=== PATIENT | male | born 1955 | race Caucasian/White ===

== ENCOUNTER 2020-07-11 06:04 | Outpatient (REF) | payer MEDICARE, SELFPAY ==
[2020-07-11 07:42] LABS: Alanine Aminotransferase 58 U/L (0-40); Anion Gap 13 (12-20); Aspartate Amino Transferase 32 U/L (5-37); Blood Urea Nitrogen 16 mg/dL (9-16); Calcium 8.8 mg/dL (8.4-10.2); Carbon Dioxide 23 mmol/L (22-29); Chloride 107 mmol/L (96-108); Cholesterol 168 mg/dL; Estimated Glomerular Filt Rate > 60; Glucose Fasting 87 mg/dL (60-99); HDL Cholesterol 39 mg/dL; LDL Cholesterol Calculated 90 mg/dl; Potassium 4.4 mmol/l (3.3-5.1); Sodium 139 mmol/L (135-145); Triglycerides 195 mg/dL
== END 2020-07-11 06:05 | disposition home or self-care (01) ==
LOC: HO.LAB 06:04
PROVIDERS: PCP Internal Medicine; Visit Provider Internal Medicine
DX: Z00.01 Encounter for general adult medical examination with abnormal findings (principal); I10 Essential (primary) hypertension; E78.5 Hyperlipidemia, unspecified
CPT/HCPCS: 80048; 80061; 84450; 84460

== ENCOUNTER 2021-04-07 09:01 | Outpatient (REF) | payer MEDICARE, SELFPAY ==
[2021-04-07 12:14] LABS: Alanine Aminotransferase 54 U/L (0-40); Anion Gap 13 (12-20); Aspartate Amino Transferase 33 U/L (5-37); Blood Urea Nitrogen 13 mg/dL (9-16); Calcium 8.8 mg/dL (8.4-10.2); Carbon Dioxide 21 mmol/L (22-29); Chloride 110 mmol/L (96-108); Cholesterol 143 mg/dL; Estimated Glomerular Filt Rate > 60; Glucose Fasting 94 mg/dL (60-99); HDL Cholesterol 38 mg/dL; LDL Cholesterol Calculated 85 mg/dl; Potassium 4.3 mmol/L (3.3-5.1); Sodium 140 mmol/L (135-145); Triglycerides 103 mg/dL
== END 2021-04-07 09:02 | disposition home or self-care (01) ==
LOC: HO.HMGCLDS 09:01
PROVIDERS: PCP Internal Medicine; Visit Provider Internal Medicine
DX: E78.5 Hyperlipidemia, unspecified (principal); I10 Essential (primary) hypertension; K75.81 Nonalcoholic steatohepatitis (NASH)
CPT/HCPCS: 36415; 80048; 80061; 84450; 84460

== ENCOUNTER 2021-09-14 11:24 | Outpatient (REF) | payer MEDICARE, SELFPAY ==
--- NOTE | ~2021-09-14 | XR_ITS ---
EXAMINATION: XR SHOULDER RT MIN 2V, XR SHOULDER LT MIN 2V CLINICAL INFORMATION: Reason for Exam M25.511 - Pain in right shoulder COMPARISON: Left shoulder radiographs dated 08/18/2019. Right shoulder radiographs dated 11/21/2017 TECHNIQUE: AP, Grashey, transscapular Y and axillary views of each shoulder XR/XR shoulder RT min 2V FINDINGS/IMPRESSION: Left shoulder: No acute fracture or dislocation. Interval Amador procedure with resection of the distal clavicle and acromion. Glenohumeral joint unremarkable. No suspicious osseous lesions. Soft tissues unremarkable. Right shoulder: No acute fracture or dislocation. Small marginal osteophytes present along the glenohumeral and acromioclavicular joints. No suspicious osseous lesions. Soft tissues unremarkable.
--- NOTE | ~2021-09-14 | XR_ITS ---
EXAMINATION: XR SHOULDER RT MIN 2V, XR SHOULDER LT MIN 2V CLINICAL INFORMATION: Reason for Exam M25.511 - Pain in right shoulder COMPARISON: Left shoulder radiographs dated 08/18/2019. Right shoulder radiographs dated 11/21/2017 TECHNIQUE: AP, Grashey, transscapular Y and axillary views of each shoulder XR/XR shoulder LT min 2V FINDINGS/IMPRESSION: Left shoulder: No acute fracture or dislocation. Interval Amador procedure with resection of the distal clavicle and acromion. Glenohumeral joint unremarkable. No suspicious osseous lesions. Soft tissues unremarkable. Right shoulder: No acute fracture or dislocation. Small marginal osteophytes present along the glenohumeral and acromioclavicular joints. No suspicious osseous lesions. Soft tissues unremarkable.
== END 2021-09-14 11:25 | disposition home or self-care (01) ==
LOC: HO.HMGCX 11:24
PROVIDERS: Visit Provider Internal Medicine
DX: M25.512 Pain in left shoulder (principal); M25.511 Pain in right shoulder
CPT/HCPCS: 73030

== ENCOUNTER 2021-09-19 12:46 | Outpatient (RCR) | payer MEDICARE, SELFPAY ==
--- NOTE | 2021-09-19 18:42 | MHC.PT.EP ---
[facility] [place] Office [place] Office [place] Office [address] David Ferguson [address] [phone] F: [phone] F: [phone] F: [phone] F: [phone] Physical Therapy Plan of Care Date of Evaluation: Date of Surgery: Diagnosis: B shoulder pain. 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 Pt is deemed an appropriate candidate to receive skilled PT in order to address his physical limitations to improve his functional ability. Frequency and Duration: The patient will be seen 2 x / wk x 5 wks. Short Term Goals: initiate HEP with evidence of compliance. Improve B Shoulder AROM flexion to at least 160 degrees. Yacht Rigger Goals: I with HEP. Pt will be able to place objects on high shelf with managed Sx; initial: 10/10 pain Pt will be able to dress pullovers with managed Sx; initial: 8/10 difficulty. Pt will be able to lift and carry an object of 10# with managed Sx; initial 10/10 pain. Treatment Plan: Modalities to reduce pain, spasms and effusion. Manual therapy to restore motion and function. Therapeutic exercise to improve strength and flexibility. Neuromuscular re-education for posture and balance. Therapeutic activities to return to functional activities of daily living. Electronically signed by: Dion Haddad, PT, DPT. Please sign and return to therapist. Thank you for your referral.
--- NOTE | 2022-03-27 16:05 | MHC.PT.DC ---
[facility] [place] Office [place] [facility] [place] Office [address] David Ferguson [address] [phone] F: [phone] F: [phone] F: [phone] F: [phone] Physical Therapy Discharge Report Diagnosis: B shoulder pain. Date of Surgery: Date of Evaluation: 09/19/21 Date of Discharge: 03/27/22 Treatments to Date: 1 Cancellations to Date: No Shows to Date: Discharge Status: Patient Elected to Stop Visit Non-compliance Discharge Summary: Pt did not f/u with PT after her initial evaluation. Electronically signed by: Dion Haddad PT. Please sign and return to therapist. Thank you for your referral.
== END 2022-03-27 16:04 | disposition home or self-care (01) ==
LOC: HO.PTCHIC 12:46
PROVIDERS: PCP Internal Medicine; Visit Provider Internal Medicine
DX: M25.511 Pain in right shoulder (principal); M25.512 Pain in left shoulder
CPT/HCPCS: 97110; 97161

== ENCOUNTER 2022-05-17 12:08 | Outpatient (REF) | payer MEDICARE, SELFPAY ==
--- NOTE | ~2022-05-17 | XR_ITS ---
EXAMINATION: XR FOOT, RIGHT CLINICAL INFORMATION: Pain COMPARISON: None TECHNIQUE: AP, lateral, and oblique views of the right foot. FINDINGS: There is no evidence of acute fracture or dislocation of the right foot. Right foot joint spaces are maintained. No radiopaque foreign body. Plantar calcaneal spur is present. XR/XR foot RT min 3V IMPRESSION: Plantar calcaneal spur.
== END 2022-05-17 12:09 | disposition home or self-care (01) ==
LOC: HO.HMGCX 12:08
PROVIDERS: PCP Internal Medicine; Visit Provider Internal Medicine
DX: M79.671 Pain in right foot (principal)
CPT/HCPCS: 73630

== ENCOUNTER 2022-05-25 06:32 | Outpatient (REF) | payer MEDICARE, SELFPAY ==
[2022-05-25 11:52] LABS: Alanine Aminotransferase 52 U/L (0-40); Anion Gap 14 (12-20); Aspartate Amino Transferase 31 U/L (5-37); Blood Urea Nitrogen 13 mg/dL (9-16); Calcium 9.1 mg/dL (8.4-10.2); Carbon Dioxide 23 mmol/L (22-29); Chloride 108 mmol/L (96-108); Cholesterol 158 mg/dL; Estimated Glomerular Filt Rate > 60; Glucose Fasting 91 mg/dL (60-99); HDL Cholesterol 38 mg/dL; LDL Cholesterol Calculated 89 mg/dl; Potassium 4.3 mmol/L (3.3-5.1); Sodium 141 mmol/L (135-145); Triglycerides 156 mg/dL
[2022-05-25 12:14] LABS: PSA,Total (Free>4and<10) 3.77 ng/mL (0.00-4.00)
== END 2022-05-25 06:33 | disposition home or self-care (01) ==
LOC: HO.HMGCLDS 06:32
PROVIDERS: PCP Internal Medicine; Visit Provider Internal Medicine
DX: Z12.5 Encounter for screening for malignant neoplasm of prostate (principal); E66.9 Obesity, unspecified; E78.5 Hyperlipidemia, unspecified; Z85.46 Personal history of malignant neoplasm of prostate
CPT/HCPCS: 36415; 80048; 80061; 84153; 84450; 84460

== ENCOUNTER 2023-02-01 06:33 | Outpatient (REF) | payer MEDICARE, SELFPAY | END 2023-02-01 06:34 | disposition home or self-care (01) | LOC: HO.HMGCLDS 06:33 | PROVIDERS: PCP Internal Medicine; Visit Provider Internal Medicine | DX: I10 Essential (primary) hypertension (principal); E78.5 Hyperlipidemia, unspecified; K75.81 Nonalcoholic steatohepatitis (NASH) | CPT/HCPCS: 36415; 80048; 80061; 84450; 84460 ==

== ENCOUNTER 2023-04-03 09:18 | Outpatient (AMB) | payer MEDICARE, SELFPAY ==
--- NOTE | 2023-04-03 09:31 | MHC.OFFWIV ---
Intake Vital Signs 04/03/23 09:32 Weight 203 lb BP 106/60 Blood Pressure Location Lt brachial Position Sitting Pulse 86 Pulse Source Pulse Oximeter Temp 98.8 F Temp Source Oral Pulse Oximetry (%) 93 Oxygen Delivery Method Room Air Intake Visit Reasons: EST/ sore throat from surgery/infection? Intake Note: Patient here for sore throat. he was had a shoulder replacement on the and has had a sore throat since then. He mentioned that he is now coughing and feels like he has a fever but is unsure if he actually has one. Patient Tobacco Use Status: Never used Tobacco Allergies No Known Allergies Allergy (Verified 01/27/23 12:01) Do you need a note to return to daycare/school/sports/work: No HPI HPI Comments History of Present Illness Details 68-year-old male that presents for sore throat. Patient states that he had total shoulder replacement surgery approximately 2 weeks ago during the surgery he was intubated. Last week he had a sore throat for most of the week. This week his sore throat change knee developed a cough some difficulty swallowing. He also endorses some hotness but has not taken his temperature at home. [facility] Medical History Degenerative disc disease, cervical Dyslipidemia Essential hypertension History of prostate cancer Intolerance to BiPAP/CPAP Left rotator cuff tear BROOKE (nonalcoholic steatohepatitis) Nodular prostate without lower urinary tract symptoms BLAIR (obstructive sleep apnea) Right foot pain Shoulder pain, bilateral Surgical History History of spinal surgery Family History Father Medical history non-contributory Mother Medical history non-contributory Social History Housing: Apartment Alcohol intake: never Patient Tobacco Use Status: Never used Tobacco e-Cigarette/Vaping Use: Never Used Second Hand Smoke Exposure: No service: No Current occupational status: employed Cognitive needs: No Hearing needs: No Vision needs: Yes Review of Systems Const All systems reviewed & are unremarkable except as noted in HPI and below ENT Details: Sore throat Physical Exam Vital Signs: Last Vital Signs Temp 98.8 F 04/03/23 09:32 Pulse 86 04/03/23 09:32 BP 106/60 04/03/23 09:32 Pulse Ox 93 04/03/23 09:32 Oxygen Delivery Method Room Air 04/03/23 09:32 Const General: healthy appearing, comfortable, no acute distress, well developed and alert HEENT Other: posterior pharynx with mild erythema no tonsillar swelling tonsils 1+ bilaterally uvula midline no trismus Assessment & Plan Assessment & Plan (1) Pharyngitis: Code(s): J02.9 - Acute pharyngitis, unspecified Plan VSS. Exam notable for erythema in the posterior pharynx no trismus muffled voice uvula deviation tonsils 1+. Patient likely suffering from viral pharyngitis based on Centor criteria no need for strep swab. Will recommend symptomatic treatment prescribed medication for cough Discharge instructions, follow up and treatment are discussed with patient in my usual fashion. Alternatives in treatment are also discussed. The patient will return for worsening symptoms or as needed. Advised that any labs/imaging ordered will be followed up on and contact made if further treatment needed. Counseled that patient's condition may require further evaluation and/or treatment. Symptoms of concern for worsening disorder discussed in detail in my customary manner. Patient does verbalize understanding of the plan, there are no apparent barriers to communication. The patient is given the opportunity to ask questions and have them answered to his/her satisfaction Medications: New dextromethorphan HBr 15 mg PO Q8H PRN 10 caps 0RF cough Patient Instructions: Your rapid strep test is negative, In the meantime soothing relief is often obtained from the following: a cup of tea with honey a cup of tea with lemon hot chocolate Chicken bullion or soup warm salt water gargles or baking soda. Mix 1 teaspoon of salt with 1 cup of water gargle for 5 to 10 seconds and then spit and repeat as needed. You can also do this with 1 teaspoon of baking soda. There are many [id number] medications to help soothe a sore throat I would suggest: CEPACOL LOZENGES CHLORASEPTIC THROAT SPRAY. There are many others.. Coding Level of Care Code Est Pt Level 2 (98965) Diagnoses Pharyngitis J02.9
[2023-04-03 09:32] VITALS: BP 106/60; PULSE 86; TEMP 37.1; O2SAT 93
== END 2023-04-03 10:03 | disposition home or self-care (01) ==
PROVIDERS: PCP Internal Medicine; Visit Provider Physician Assistant
DX: J02.9 Acute pharyngitis, unspecified (principal)
CPT/HCPCS: 87880; 99212

== ENCOUNTER 2023-04-06 16:08 | Emergency (ER) | payer MEDICARE, SELFPAY ==
--- NOTE | ~2023-04-06 | XR_ITS ---
EXAMINATION: XR CHEST CLINICAL INFORMATION: Shortness of breath COMPARISON: None available. TECHNIQUE: 2 views of the chest were obtained. FINDINGS: Subtle radiopacity in the left lung base may reflect atelectasis versus evolving infectious/inflammatory etiology. Slight right basilar atelectasis. No pneumothorax. Trachea is midline. Cardiomediastinal silhouette is not enlarged. Lower cervical spinal hardware. Right shoulder arthroplasty. Faint radiopaque surgical material overlying the gastroesophageal junction. Soft tissues are unremarkable. XR/XR chest 2V IMPRESSION: 1. Subtle radiopacity in the left lung base may reflect atelectasis versus evolving infectious/inflammatory etiology. 2. Slight right basilar atelectasis.
[2023-04-06 16:12] VITALS: BP 126/60; PULSE 80; RESP 18; TEMP 36.6; O2SAT 98; BMI 35.5
--- NOTE | 2023-04-06 16:12 | ECG_ITS ---
Test Reason : SOB Blood Pressure : / mmHG Vent. Rate : 069 BPM Atrial Rate : 069 BPM P-R Int : 126 ms QRS Dur : 096 ms QT Int : 396 ms P-R-T Axes : 015 -12 018 degrees QTc Int : 424 ms Sinus rhythm with Premature atrial complexes Moderate voltage criteria for LVH, may be normal variant ( R in aVL , Cezar product ) Borderline ECG When compared with ECG of 02-MAY-2010 09:58, Premature atrial complexes are now Present Referred By: Janelle Link Electronically Signed By:STEVE DICK
--- NOTE | 2023-04-06 16:12 | ED.SOB ---
HPI - SOB/Dyspnea General Chief Complaint: General Medical Stated Complaint: Coughing/ Weakness Time Seen by Provider: 04/06/23 17:04 Source: patient Limitations: no limitations History of Present Illness HPI Narrative: Patient is a 68 year old male who presents to the ED for a sore throat and cough. He reports that he had surgery on his right shoulder about 3 weeks ago, and started 2 weeks ago his symptoms started. He reports that the cough is associated with mild phlegm production and has worsened over time. He notes associated fever and chills but denies taking his temperature at home. He explains that he only feels short of breath when he experiences a coughing fit. He has taken OTC Robitussin, which has not alleviated his symptoms. He denies taking an at-home COVID test. Related Data Home Medications Medication Instructions Recorded Confirmed morphine 30 mg immediate release 30 mg PO Q8-12H PRN 04/03/23 tablet naproxen 500 mg tablet 500 mg PO BID 04/03/23 oxycodone 5 mg tablet mg PO 04/03/23 Previous Rx's Medication Instructions Recorded lisinopril 20 1 tab PO DAILY #90 tabs 03/11/23 mg-hydrochlorothiazide 12.5 mg tablet dextromethorphan HBr 15 mg capsule 15 mg PO Q8H PRN cough #10 caps 04/03/23 amoxicillin 875 mg-potassium 1 tab PO BID #14 tabs 04/06/23 clavulanate 125 mg tablet azithromycin 250 mg tablet 250 mg PO DAILY 4 days #4 tabs 04/06/23 Allergies Allergy/AdvReac Type Severity Reaction Status Date / Time No Known Allergies Allergy Verified 04/06/23 16:12 Review of Systems Constitutional: Constitutional: Reports chills, Reports fever(s) and Reports weakness ENT: Reports nasal congestion and Reports sore throat Cardiovascular: Cardiovascular: Denies chest pain Respiratory: Respiratory: Reports cough Gastrointestinal: Gastrointestinal: Denies abdominal pain Musculoskeletal: Musculoskeletal: Denies back pain Neurologic: Reports weakness PMFSH Past Medical History Medical History Degenerative disc disease, cervical Dyslipidemia Essential hypertension History of prostate cancer Intolerance to BiPAP/CPAP Left rotator cuff tear BROOKE (nonalcoholic steatohepatitis) Nodular prostate without lower urinary tract symptoms BLAIR (obstructive sleep apnea) Right foot pain Shoulder pain, bilateral Surgical History History of spinal surgery Family History Family History Father Medical history non-contributory Mother Medical history non-contributory Social History Social History Housing: Apartment Alcohol intake: never Patient Tobacco Use Status: Never used Tobacco Smoked in Last 30 Days: No e-Cigarette/Vaping Use: Never Used Second Hand Smoke Exposure: No Use of substances other than those prescribed or required for medical reasons: No Advance Directives: Yes Advance Directives on File: Yes Advance Directives Date on File: 11/05/21 service: No Current occupational status: employed Cognitive needs: No Hearing needs: No Vision needs: Yes Physical Exam Vital Signs: Vital Signs: Last Vital Signs Temp 98.6 F 04/06/23 16:38 Pulse 65 04/06/23 16:38 Resp 16 04/06/23 16:38 BP 132/65 04/06/23 16:38 Pulse Ox 94 04/06/23 16:38 O2 Del Method Room Air 04/06/23 16:38 BMI result Body Mass Index 35.5 Const: General: healthy appearing, comfortable, no acute distress, alert and awake Nutritional Appearance: well nourished Orientation/consciousness: patient oriented x3 HEENT: Head: Yes normocephalic and Yes atraumatic Eyes: Eyelids: Yes eyelids normal Conjunctivae: conjunctivae normal Sclerae: sclerae normal Corneas: corneas normal Pupils: Equal, round and reactive pupils present EOM: EOMs intact bilaterally Neck: Neck: Yes full ROM Resp: Effort & Inspection: normal respiratory effort, able to speak in complete sentences, no audible wheezes and not labored Auscultation: not clear to auscultation bilaterally and rhonchi left lower Cardio: Rate: regular rate Rhythm: regular rhythm GI: Inspection: No distended Palpation (GI): Soft to palpation, not firm, nontender, no guarding and not rigid Skin: General skin exam: no rashes or lesions noted and elasticity normal Neuro: General: patient oriented x3 Cranial nerves: Yes Equal, round and reactive pupils present and Yes Bilaterally intact EOM present Cognition (Neuro): normal cognition Course Course Course Narrative: This is a rapid medical exam. Deferred additional HPI, ROS, PE to primary provider. 68 yo male who had a shoulder replacement to right side 3 weeks ago here with complaints of 1 week of cough/shortness of breath/ chest pain with coughing. Will obtain labs, CXR, EKG, covid/flu/rsv VSS Medical Decision Making Medical Decision Making MDM Narrative: 68-year-old male presents for evaluation of cough and subjective fevers and chills. He has a leukocytosis of 17.5, mild rhonchi left lower lung field. Chest x-ray shows infectious process in the left lung base. Will treat the patient clinically for community-acquired pneumonia. I did discuss the possibility with him if he has worsening symptoms, or severe chest pain/shortness of breath he should return for further workup including is likely CTA of the chest to rule out PE given his recent orthopedic surgery. Her given clinically the picture is much more likely to be pneumonia we will treat that 1st. His vital signs are stable, he is not tachypneic, tachycardic or hypoxic Differential Diagnosis Differential Diagnoses: The differential diagnosis associated with the presentation includes Community-acquired pneumonia Viral syndrome Influenza COVID-19 PE less likely Admission/Observation Consideration of admission/observation: Escalation of care including admission/observation considered Patient has pneumonia clinically and on x-ray. However he is not septic and his vital signs are stable Lab Data [facility] Lab Attestation statement: I reviewed the patient's lab results. Leukocytosis to 17.5 K with a left shift. Mild anemia. No electrolyte abnormalities, normal renal function. 04/06/23 16:35 04/06/23 16:35 Labs: Lab Results 04/06/23 04/06/23 04/06/23 Range/Units 16:35 16:35 16:35 WBC 17.5 H (4.8-10.8) X10*3/uL RBC 4.36 L (4.60-5.80) X10*6/uL Hgb 12.3 L (14.0-18.0) g/dl Hct 36.1 L (42.0-52.0) % MCV 82.8 (80.0-98.0) fL MCH 28.2 (27.0-33.0) pg MCHC 34.1 (31.0-36.0) g/dl RDW 12.2 (11.0-16.0) % Plt Count 417 H (160-400) X10*3/uL MPV 10.4 (9.4-12.4) fL Immature Gran % (Auto) 0.5 H (0.0-0.4) % Neut % (Auto) 73.8 H (45-73) % Lymph % (Auto) 12.8 L (20-40) % Hubbard % (Auto) 9.9 (2-11) % Eos % (Auto) 2.5 (0-4) % Baso % (Auto) 0.5 (0-2) % Lymph # (Auto) 2.2 (1.2-4.9) X10*3/uL Hubbard # (Auto) 1.7 H (0.1-1.2) X10*3/uL Eos # (Auto) 0.4 (0.0-0.4) X10*3/uL Baso # (Auto) 0.1 (0.0-0.2) X10*3/uL Abs Immat Gran (auto) 0.08 H (0.00-0.03) X10*3/uL Absolute Neuts (auto) 13.0 H (2.0-8.3) x10*3/uL Absolute Nucleated RBC 0.000 (0.0-0.012) X10*3/uL Nucleated RBC % (auto) 0.0 (0.0-0.2) /100WBC PT 14.5 H (11.1-13.3) SEC INR 1.2 H (0.9-1.1) Sodium 136 (135-145) mmol/L Potassium 3.7 (3.3-5.1) mmol/L Chloride 102 (96-108) mmol/L Carbon Dioxide 25 (22-29) mmol/L Anion Gap 13 (12-20) BUN 16 (9-16) mg/dL Creatinine 1.08 (0.5-1.4) mg/dL Estim Creat Clear Calc 64.4 Estimated GFR > 60 Random Glucose 125 H (60-115) mg/dL Calcium 9.1 (8.4-10.2) mg/dL Total Bilirubin 0.7 (0.0-1.0) mg/dL Direct Bilirubin 0.4 (0.0-0.5) mg/dL AST 21 (5-37) U/L ALT 22 (0-40) U/L Alkaline Phosphatase 114 (39-117) U/L Troponin I High Sens (<3.5-35.0) ng/L Total Protein 7.2 (6.5-8.0) g/dL Albumin 3.4 L (3.5-5.0) g/dL Influenza Type A (PCR) (Negative) Influenza Type B (PCR) (Negative) RSV RNA Qual (PCR) (Negative) SARS-CoV-2 RNA (RT-PCR) (Negative) 04/06/23 04/06/23 Range/Units 16:35 16:35 WBC (4.8-10.8) X10*3/uL RBC (4.60-5.80) X10*6/uL Hgb (14.0-18.0) g/dl Hct (42.0-52.0) % MCV (80.0-98.0) fL MCH (27.0-33.0) pg MCHC (31.0-36.0) g/dl RDW (11.0-16.0) % Plt Count (160-400) X10*3/uL MPV (9.4-12.4) fL Immature Gran % (Auto) (0.0-0.4) % Neut % (Auto) (45-73) % Lymph % (Auto) (20-40) % Hubbard % (Auto) (2-11) % Eos % (Auto) (0-4) % Baso % (Auto) (0-2) % Lymph # (Auto) (1.2-4.9) X10*3/uL Hubbard # (Auto) (0.1-1.2) X10*3/uL Eos # (Auto) (0.0-0.4) X10*3/uL Baso # (Auto) (0.0-0.2) X10*3/uL Abs Immat Gran (auto) (0.00-0.03) X10*3/uL Absolute Neuts (auto) (2.0-8.3) x10*3/uL Absolute Nucleated RBC (0.0-0.012) X10*3/uL Nucleated RBC % (auto) (0.0-0.2) /100WBC PT (11.1-13.3) SEC INR (0.9-1.1) Sodium (135-145) mmol/L Potassium (3.3-5.1) mmol/L Chloride (96-108) mmol/L Carbon Dioxide (22-29) mmol/L Anion Gap (12-20) BUN (9-16) mg/dL Creatinine (0.5-1.4) mg/dL Estim Creat Clear Calc Estimated GFR Random Glucose (60-115) mg/dL Calcium (8.4-10.2) mg/dL Total Bilirubin (0.0-1.0) mg/dL Direct Bilirubin (0.0-0.5) mg/dL AST (5-37) U/L ALT (0-40) U/L Alkaline Phosphatase (39-117) U/L Troponin I High Sens 2.9 (<3.5-35.0) ng/L Total Protein (6.5-8.0) g/dL Albumin (3.5-5.0) g/dL Influenza Type A (PCR) NEGATIVE (Negative) Influenza Type B (PCR) NEGATIVE (Negative) RSV RNA Qual (PCR) NEGATIVE (Negative) SARS-CoV-2 RNA (RT-PCR) NEGATIVE (Negative) Independent Interpretation I performed an independent interpretation of an: Plain X-Ray (Left lower lobe infiltrate) Radiology Impression Discussion of test interpretation with radiology: I have reviewed the radiologist's reading. Radiologist Impression: Left lower lobe atelectasis versus developing infectious process Tests considered The following testing was considered but not selected: Considered CTA of the chest to rule out PE, however clinically the patient is much more likely to have pneumonia Prescription Management I considered prescription management with: Antibiotic Chronic Conditions Patient?s care impacted by: Hypertension Discharge Plan Discharge Clinical Impression: Community acquired pneumonia Patient Disposition: Home, Self-Care Instructions: Community Acquired Pneumonia (ED) Additional Instructions: Your workup in the emergency department today shows that you have pneumonia in the left lower lung field. Take both antibiotics as prescribed You may also use [id number] cough medicine as needed for coughing Return to the ER if he develops severe pain or shortness of breath. You should also return to the ER if you finish the antibiotics and her symptoms do not improve Prescriptions: New amoxicillin-pot clavulanate 875-125 mg tablet 1 tab PO BID Qty: 14 0RF azithromycin 250 mg tablet 250 mg PO DAILY 4 Days Qty: 4 0RF No Action lisinopril-hydrochlorothiazide 20-12.5 mg tablet 1 tab PO DAILY Qty: 90 1RF morphine 30 mg tablet 30 mg PO Q8-12H PRN oxycodone 5 mg tablet PO naproxen 500 mg tablet 500 mg PO BID dextromethorphan HBr 15 mg capsule 15 mg PO Q8H PRN (Reason: cough) Qty: 10 0RF
[2023-04-06 16:38] VITALS: BP 132/65; PULSE 65; RESP 16; TEMP 37; O2SAT 94
[2023-04-06 16:42] LABS: Basophils Absolute Auto 0.1 X10*3/uL (0.0-0.2); Basophils Percent Auto 0.5 % (0-2); Eosinophils Absolute Auto 0.4 X10*3/uL (0.0-0.4); Eosinophils Percent Auto 2.5 % (0-4); Hematocrit 36.1 % (42.0-52.0); Hemoglobin 12.3 g/dl (14.0-18.0); Imm Gran Abs Auto 0.08 X10*3/uL (0.00-0.03); Imm Gran Pct Auto 0.5 % (0.0-0.4); Lymphocytes Absolute Auto 2.2 X10*3/uL (1.2-4.9); Lymphocytes Percent Auto 12.8 % (20-40); MANUAL DIFF FLAG SCAN; Mean Corpuscular HGB Conc 34.1 g/dl (31.0-36.0); Mean Corpuscular Hemoglobin 28.2 pg (27.0-33.0); Mean Corpuscular Volume 82.8 fL (80.0-98.0); Mean Platelet Volume 10.4 fL (9.4-12.4); Monocytes Absolute Auto 1.7 X10*3/uL (0.1-1.2); Monocytes Percent Auto 9.9 % (2-11); Neutrophils Percent Auto 73.8 % (45-73); Platelet Count 417 X10*3/uL (160-400); Red Blood Count 4.36 X10*6/uL (4.60-5.80); Red Cell Distribution Width 12.2 % (11.0-16.0); SCAN SMEAR FLAG 1; White Blood Count 17.5 X10*3/uL (4.8-10.8)
--- NOTE | 2023-04-06 16:42 | PC.NURSE ---
alert and oriented, respirations even and unlabored. denies any pain at this time, states his chest only hurts with his cough. cough has been persistent since intubation with shoulder surgery. denies any sick contacts or fevers at home. call saenz within reach, resting comfortably in room
[2023-04-06 16:47] LABS: INTERNATIONAL NORM RATIO 1.2 (0.9-1.1); Prothrombin Time 14.5 SEC (11.1-13.3)
[2023-04-06 16:55] LABS: Alanine Aminotransferase 22 U/L (0-40); Albumin Level 3.4 g/dL (3.5-5.0); Alkaline Phosphatase 114 U/L (39-117); Anion Gap 13 (12-20); Aspartate Amino Transferase 21 U/L (5-37); Bilirubin Direct 0.4 mg/dL (0.0-0.5); Bilirubin Total 0.7 mg/dL (0.0-1.0); Blood Urea Nitrogen 16 mg/dL (9-16); Calcium 9.1 mg/dL (8.4-10.2); Carbon Dioxide 25 mmol/L (22-29); Chloride 102 mmol/L (96-108); Creatinine Clr Calc Pharmacy 64.4; Estimated Glomerular Filt Rate > 60; Glucose Random 125 mg/dL (60-115); Potassium 3.7 mmol/L (3.3-5.1); Sodium 136 mmol/L (135-145); Total Protein 7.2 g/dL (6.5-8.0)
[2023-04-06 17:02] LABS: Troponin-I High Sensitivity 2.9 ng/L (<3.5-35.0)
[2023-04-06 17:20] LABS: Influenza A PCR NEGATIVE (Negative); Influenza B PCR NEGATIVE (Negative); Resp Syncy Virus RNA Qual PCR NEGATIVE (Negative); SARS COV2 PCR INHOUSE NEGATIVE (Negative)
[2023-04-06 17:47] LABS: SLIDE REVIEW VERIFIED
[2023-04-06] MEDS: Amoxicillin/Potassium Clav 875 MG TABLET PO (17:47)
[2023-04-06] MEDS: Azithromycin 500 MG TABLET PO (17:47)
== END 2023-04-06 17:51 | disposition home or self-care (01) ==
PROVIDERS: Nurse Practitioner Family; Emergency Provider Internal Medicine; PCP Internal Medicine
DX: J18.9 Pneumonia, unspecified organism (principal); R05.9 Cough, unspecified; R06.02 Shortness of breath; R94.31 Abnormal electrocardiogram [ECG] [EKG]; R53.1 Weakness; Z20.822 Contact with and (suspected) exposure to COVID-19; Z20.828 Contact with and (suspected) exposure to other viral communicable diseases; Z79.899 Other long term (current) drug therapy
CPT/HCPCS: 0241U; 71046; 80048; 80076; 84484; 85025; 85610; 93005; 99284

== ENCOUNTER 2023-04-15 13:16 | Outpatient (AMB) | payer MEDICARE, SELFPAY ==
--- NOTE | 2023-04-15 13:44 | MHC.PC.OV ---
Vital Signs 04/15/23 14:05 Height 5 ft 3 in Weight 199 lb BMI 35.2 BP 138/70 Blood Pressure Location Lt brachial Position Sitting Pulse 57 Pulse Source Pulse Oximeter Pulse Oximetry (%) 97 Oxygen Delivery Method Room Air Intake Visit Reasons: Follow-up pneumonia Intake Note: Pt is here today for a ER [facility] f/u pneumonia still has cough Allergies No Known Allergies Allergy (Verified 04/15/23 14:14) Medication List - Last Reconciled 04/15/23 by Kinga Mukherjee MD lisinopril-hydrochlorothiazide 20-12.5 mg 1 tab PO DAILY naproxen 500 mg PO BID Tobacco use date assessed: 04/15/23 Fall risk assessment: No Falls in past year Last assessed Fall Risk: 04/15/23 Dental Screening Dental Screen Date: 04/15/23 Did you have a dental visit in the last 12 months?: No Was dental information given to patient?: Patient has dentist HPI HPI Comments History of Present Illness Details 68-year-old male recently seen at the walk-in clinic and treated for left lower lobe pneumonia with Augmentin for 7 days and Z-Oswald,, here today for follow-up. Still complaining of persistent cough, but no shortness of breath, no chest pain or fever reported. He is a nonsmoker. [facility] Medical History Right foot pain History of prostate cancer Shoulder pain, bilateral Nodular prostate without lower urinary tract symptoms Intolerance to BiPAP/CPAP BLAIR (obstructive sleep apnea) Left rotator cuff tear Degenerative disc disease, cervical BROOKE (nonalcoholic steatohepatitis) Dyslipidemia Essential hypertension Surgical History History of spinal surgery Family History Father Medical history non-contributory Mother Medical history non-contributory Social History Housing: Apartment Alcohol intake: never Patient Tobacco Use Status: Never used Tobacco e-Cigarette/Vaping Use: Never Used Second Hand Smoke Exposure: No Advance Directives Date on File: 11/05/21 service: No Current occupational status: employed Cognitive needs: No Hearing needs: No Vision needs: Yes Questionnaire Thrive Questionnaire Date Thrive assessed: 01/27/23 QUINTEN-7 AMB Questionnaire QUINTEN-7 Date QUINTEN - 7 assessed: 01/27/23 Source: Developed by Drs. Josh Westfall, Adry Almonte, Koby Jones and colleagues, with an educational frederick from [employer]. Review of Systems Const Denies fatigue, Denies fever(s), Denies headache(s) and Denies weakness ENT Denies dizziness, Denies headache(s), Denies nasal congestion, Denies nasal discharge and Denies sore throat Card Denies chest pain, Denies lightheadedness, Denies palpitations and Denies dyspnea Resp Reports as per HPI and Denies dyspnea GI Denies abdominal pain, Denies change in bowel habits and Denies heartburn Denies hematuria, Denies difficulty urinating, Denies dysuria, Denies urinary frequency and Denies urinary urgency Musc Reports as per HPI Skin/Breast Denies lesions and Denies rash Neuro Denies dizziness, Denies headache(s) and Denies weakness Endo Denies fatigue, Denies polydipsia, Denies polyuria and Denies palpitations Physical exam (Primary Care) Vital Signs: Last Vital Signs Pulse 57 04/15/23 14:05 BP 138/70 04/15/23 14:05 Pulse Ox 97 04/15/23 14:05 Oxygen Delivery Method Room Air 04/15/23 14:05 BMI result Body Mass Index 35.2 Tobacco/Smoking Status: Tobacco use Status Tobacco use date assessed 04/15/23 04/15/23 13:48 Patient Tobacco Use Status Never used Tobacco 04/15/23 13:46 e-Cigarette/Vaping Use Never Used 04/15/23 13:46 Thrive Assessment: Date of Thrive Assessment Date Thrive assessed 01/27/23 04/15/23 13:46 Const Other: Alert oriented x3, no acute distress noted Orientation/consciousness: patient oriented x3 HENMT Ears: external ears normal, TM's normal bilaterally and EAC's normal General nose exam: Normal external nose present Face and sinus: Yes sinuses nontender and Yes face symmetric Mouth: Normal oral and palatal mucosa present, oropharynx normal and moist mucous membranes Neck Neck: Yes full ROM, Yes no lymphadenopathy and Yes supple Resp Auscultation: wheezes left lower Cardio Other: S1-S2 present regular rate and rhythm GI Palpation (GI): Soft to palpation, nontender and no guarding Auscultation: normal bowel sounds Neuro General: patient oriented x3, moves all extremities, no focal motor deficits and CN's II-XI intact bilaterally Assessment and Plan Assessment & Plan (1) Persistent cough: Code(s): R05.3 - Chronic cough Plan: Ordered a repeat CBC with differential, and repeat chest x-ray, placed on 3 more days of Augmentin and prescription sent for albuterol inhaler, 2 inhalations every 6 hours as needed for episodes of shortness of breath or wheezing. Return to the clinic if after 3 days no improvement of symptoms Orders: Orders Complete Blood Count Auto Diff 04/16/23 R05.3 - Chronic cough XR chest 2V 04/15/23 R05.3 - Chronic cough Medications: New amoxicillin-pot clavulanate 875-125 mg 1 tab PO Q12H 6 tabs 0RF 3 days albuterol sulfate 90 mcg/actuation 2 puffs inhalation Q6H PRN 8.5 grams 0RF shortness of breath or wheezing Coding Level of Care Code Est Pt Level 4 (69544) Diagnoses Persistent cough R05.3
[2023-04-15 14:05] VITALS: BP 138/70; PULSE 57; O2SAT 97; BMI 35.2
== END 2023-04-15 14:42 | disposition home or self-care (01) ==
PROVIDERS: PCP Internal Medicine; Visit Provider Internal Medicine
DX: R05.3 Chronic cough (principal)
CPT/HCPCS: 99214

== ENCOUNTER 2023-04-15 15:54 | Outpatient (REF) | payer MEDICARE, SELFPAY ==
--- NOTE | ~2023-04-15 | XR_ITS ---
EXAMINATION: XR CHEST CLINICAL INFORMATION: Pneumonia follow-up COMPARISON: 04/06/2023 TECHNIQUE: 2 views of the chest were obtained. FINDINGS: Persistent patchy density left base. Improved aeration at the left base since the prior study. Continued follow-up advised. Right lung clear. Heart and pulmonary vessels are normal. Postsurgical changes in the C-spine and right shoulder are again observed. XR/XR chest 2V IMPRESSION: Improving aeration left base. Continued follow-up is advised.
== END 2023-04-15 15:55 | disposition home or self-care (01) ==
LOC: HO.HMGCX 15:54
PROVIDERS: PCP Internal Medicine; Visit Provider Internal Medicine
DX: R05.3 Chronic cough (principal)
CPT/HCPCS: 71046

== ENCOUNTER 2023-04-16 06:34 | Outpatient (REF) | payer MEDICARE, SELFPAY ==
[2023-04-16 11:55] LABS: MANUAL DIFF FLAG NO
[2023-04-16 12:08] LABS: Basophils Absolute Auto 0.1 X10*3/uL (0.0-0.2); Basophils Percent Auto 0.6 % (0-2); Eosinophils Absolute Auto 0.4 X10*3/uL (0.0-0.4); Eosinophils Percent Auto 3.2 % (0-4); Hematocrit 39.1 % (42.0-52.0); Hemoglobin 12.7 g/dl (14.0-18.0); Imm Gran Abs Auto 0.13 X10*3/uL (0.00-0.03); Imm Gran Pct Auto 1.2 % (0.0-0.4); Lymphocytes Absolute Auto 2.9 X10*3/uL (1.2-4.9); Lymphocytes Percent Auto 25.9 % (20-40); Mean Corpuscular HGB Conc 32.5 g/dl (31.0-36.0); Mean Corpuscular Hemoglobin 28.3 pg (27.0-33.0); Mean Corpuscular Volume 87.1 fL (80.0-98.0); Mean Platelet Volume 11.4 fL (9.4-12.4); Monocytes Percent Auto 8.8 % (2-11); Neutrophils Absolute Auto 6.7 x10*3/uL (2.0-8.3); Neutrophils Percent Auto 60.3 % (45-73); Platelet Count 374 X10*3/uL (160-400); Red Blood Count 4.49 X10*6/uL (4.60-5.80); Red Cell Distribution Width 12.8 % (11.0-16.0); White Blood Count 11.2 X10*3/uL (4.8-10.8)
== END 2023-04-16 06:35 | disposition home or self-care (01) ==
LOC: HO.HMGCLDS 06:34
PROVIDERS: PCP Internal Medicine; Visit Provider Internal Medicine
DX: R05.3 Chronic cough (principal)
CPT/HCPCS: 36415; 85025

== ENCOUNTER 2024-02-12 12:48 | Outpatient (AMB) | payer MEDICARE, SELFPAY ==
--- NOTE | 2024-02-12 13:00 | A.OFFVIS_ITS ---
Intake Vital Signs 02/12/24 13:02 Height 5 ft 3 in Weight 215 lb BMI 38.1 BP 130/70 Blood Pressure Location Rt brachial Position Sitting Pulse 79 Pulse Source Pulse Oximeter Pulse Oximetry (%) 96 Oxygen Delivery Method Room Air Intake Visit Reasons: G0439 AWV Intake Note: Pt is here today for her AWV Allergies No Known Allergies Allergy (Verified 02/12/24 13:10) Medication List - Last Reconciled 02/12/24 by Kinga Mukherjee MD lisinopril-hydrochlorothiazide 20-12.5 mg 1 tab PO DAILY HPI G0439 AWV HPI Details SWV ? 69 year old male presents for his subsequent annual wellness visit. He has hypertension currently stable and controlled on lisinopril-HCTZ has been compliant with his medications and diet, stays active at work. He is currently being followed [facility], diagnosed with adenocarcinoma of the prostate status post robotic assisted prostatectomy 024 with bilateral PLND, doing well post surgery except for difficulty holding urine. He has a follow-up appointment scheduled with them later this month. He had normal fasting lipid and screening for diabetes mellitus done 02/01/2023. Last colonoscopy was done in 2006, does not want to do further testing at present time. He is up-to-date with his COVID vaccination, up-to-date with his pneumococcal vaccination and Tdap, reminded to get his shingles vaccine and yearly flu shot. ? Medical / Social History Reviewed? Past Medical History ?Yes . ? Topping of Care / Care Team list updated ?Yes . ? Surgical/Hospitalization History ?Yes . ? Current Medications (including OTC and supplements) ?Yes . ? Family History ?Yes . ? Tobacco Control form ?Yes . ? AUDIT-C (Alcohol use) form ?Yes . ? Illicit drug use in Social History ?Yes . ? Current diagnosis of depression? ?No ? Appropriate PHQ2/PHQ9 completed ?Yes . ? Data entered by ?Cosmetician Apprentice and reviewed by provider ? Fall Risk ? Fall History? Have you had any falls with injury in the past year? ?No . ? Have you had two or more falls in the past year? ?No . ? Fall Risk Assessment: ?No falls in the past year . ? HRA filled out by the patient, reviewed by Provider and scanned. ? SWV ? Balance? Romberg ?Pass. ? Tandem walk ?Yes . ? Walk and Turn ?Yes . ? Rise from sit to stand ?Yes . ?Vision? Corrective lens ?Yes, wears reading glasses ? Vision screen ? Up-to-date, goes to opthalmologist in [place] , wears reading glasses ?Hearing? Whisper test ?pass . ?Written Plan?Completed. See Patient Documents.? [facility] Medical History History of prostate cancer Shoulder pain, bilateral Intolerance to BiPAP/CPAP BLAIR (obstructive sleep apnea) Left rotator cuff tear Degenerative disc disease, cervical BROOKE (nonalcoholic steatohepatitis) Dyslipidemia Essential hypertension Surgical History History of spinal surgery Family History Father Medical history non-contributory Mother Medical history non-contributory Social History Housing: Apartment Alcohol intake: never Patient Tobacco Use Status: Never used Tobacco e-Cigarette/Vaping Use: Never Used Second Hand Smoke Exposure: No Advance Directives Date on File: 11/05/21 service: No Current occupational status: employed Cognitive needs: No Hearing needs: No Vision needs: Yes Questionnaire Medicare Wellness Checkup [age] What gender do you identify with?: male During the past 4 weeks, how much have you been bothered by emotional problems such as feeling anxious, depressed, irritable, sad or downhearted, and blue?: not at all During the past 4 weeks, has your physical & emotional health limited your social activities with family, friends, neighbors, or groups?: not at all During the past 4 weeks, how much bodily pain have you generally had?: no pain During the past 4 weeks, was someone available to help you if you needed & wanted help?: no, not at all During the past 4 weeks, what was the hardest physical activity you could do for at least 2 minutes?: heavy Can you get to places out of walking distance without help? (For eg., can you tr [place] alone on buses, taxis or drive your car?): Yes Can you go shopping for groceries or clothes without someone's help?: Yes Can you prepare your own meals?: Yes Can you do your housework without help?: Yes Because of any health problems, do you need the help of another person with your personal care needs such as eating, bathing, dressing or getting around the house?: No Can you handle your own money without help?: Yes During the past 4 weeks, how would you rate your health in general?: good During the past 4 weeks how have things been going for you?: pretty well Are you having difficulties driving your car?: no Do you always fasten your seat belt when you are in a car?: yes, usually During past 4 weeks, have you been bothered by the following: never: Falling or dizzy when standing up, Sexual problems?, Trouble eating well?, Teeth or denture problems?, Problems using the telephone? and Tiredness or fatigue? Have you fallen 2 or more times in the past year?: No Are you afraid of falling?: No Are you a smoker?: no During the past 4 weeks, how many drinks of wine, beer, or other alcoholic beverages did you have?: no alcohol at all Do you exercise for about 20 minutes 3 or more times a week?: no, I usually do n ot exercise this much Have you been given information to help with the following?: no: Hazards in your house that might hurt you? and no: Keeping track of your medications? How often do you have trouble taking medicines the way you have been told to take them?: I always take medicine as prescribed How confident are you that you can control & manage most of your health problems?: very confident What is your race?: White Mini Mental State Exam (MMSE) Orientation What is the (year) (season) (date) (day) (month)?: year (2023), season (Summer), date (02/12/2024), day () and month (February) Where are we (state) (county) (town or city) (hospital) (floor)?: state ([place]), [facility] ([place]), town or city ([place]) and hospital/clinic ([facility]) Score Score: 9 Activity of Daily Living Bathing - sponge bath, tub bath or shower: receives no assistance (gets in/out by self, if usual bathing means Dressing - getting clothes from closets & drawers, including inner/outer garments & fasteners.: gets clothes & gets completely dressed without help Toileting - going to the 'toilet room' for urine/bowel elimination & cleaning self/arranging clothes: goes to toilet room, cleans self, arranges clothes without help Transfer: moves in & out of bed and chair without help (may use support object) Continence: controls urination/bowel movements completely by self Feeding: feeds self without help Total Score: 0 Information obtained from: patient Using telephone: independent Traveling: independent Shopping: independent Preparing meals: independent Housework: independent Taking medicine: independent Managing money: independent PHQ-9 Over the last 2 weeks, how often have you been bothered by any of the following problems? 1. Little interest or pleasure in doing things: not at all 2. Feeling down, depressed, or hopeless: not at all 3. Trouble falling or staying asleep, or sleeping too much: not at all 4. Feeling tired or having little energy: not at all 5. Poor appetite or overeating: not at all 6. Feeling bad about yourself - or that you are a failure or have let yourself or your family down: not at all 7. Trouble concentrating on things, such as reading the newspaper or watching television: not at all 8. Moving or speaking so slowly that other people could have noticed. Or the opposite - being so fidgety or restless that you have been moving around a lot more than usual: not at all 9. Thoughts that you would be better off or of hurting yourself in some way: not at all Total score: 0 Depression Screening Interpretation: Negative Depression Screening Done: Yes 99610 - PHQ-9 Billing: Yes Source: Developed by Drs. Josh Westfall, Adry Almonte, Koby Jones and colleagues, with an educational frederick from [employer]. Physical Exam Vital Signs: Last Vital Signs Pulse 79 02/12/24 13:02 Pulse Ox 96 02/12/24 13:02 Oxygen Delivery Method Room Air 02/12/24 13:02 BMI result Body Mass Index 38.1 Assessment & Plan Assessment & Plan (1) Encounter for subsequent annual wellness visit (AWV) in Medicare patient: Code(s): Z00.00 - Encounter for general adult medical examination without abnormal findings Plan: Medical wellness checklist reviewed, discussed with patient and updated. Reminded to get his yearly flu shot, and shingles vaccination, copy of visit given to patient (2) Essential hypertension: Code(s): I10 - Essential (primary) hypertension Plan: Hypertension controlled, continue lisinopril-HCTZ 20-12.5 mg taken once a day (3) Advanced directives, counseling/discussion: Code(s): Z71.89 - Other specified counseling Plan: Initiated the conversation about Advanced Directives. Advanced Directives help patients prepare for current and future decisions about their medical treatment and place of care. Discussed with patient that it is a process where a patients current condition and prognosis are reviewed, their wishes for information regarding their illness are elicited, and likely medical dilemmas are presented and options discussed. MOLST and healthcare proxy form completed today. These forms can be amended as needed, reviewed yearly and make changes as needed (4) History of prostate cancer: Comment: Followed by [facility] Code(s): Z85.46 - Personal history of malignant neoplasm of prostate Plan: Followed by [facility] status post robotic prostatectomy Quality Reporting (2019) Depression/Bipolar (159/160/161/177) PHQ-9: Total score: 0 Coding Level of Care Code Medicare Subsequent (G0439) Diagnoses Encounter for subsequent annual wellness visit (AWV) in Medicare patient Z00.00 Essential hypertension I10 Advanced directives, counseling/discussion Z71.89 History of prostate cancer Z85.46 CPT Codes Advance Care Planning - Time spent: 16-45 minutes ([id number]) Advance Care Planning Advance Care Planning discussion: Completed/Scanned Date of discussion: 02/12/24 Who was present: Patient Forms completed: Health Care Proxy and MOLST Time spent: 16-45 minutes Actual minutes spent: 16
[2024-02-12 13:02] VITALS: BP 130/70; PULSE 79; O2SAT 96; BMI 38.1
== END 2024-02-12 13:41 | disposition home or self-care (01) ==
PROVIDERS: PCP Internal Medicine; Visit Provider Internal Medicine
DX: Z00.00 Encounter for general adult medical examination without abnormal findings (principal); I10 Essential (primary) hypertension; Z71.89 Other specified counseling; Z85.46 Personal history of malignant neoplasm of prostate
CPT/HCPCS: 99497; G0439

== ENCOUNTER → 2024-06-18 14:17 | Outpatient (BNVA) | payer MEDICARE, SELFPAY | PROVIDERS: PCP Internal Medicine | DX: I10 Essential (primary) hypertension (principal); F51.05 Insomnia due to other mental disorder; F99 Mental disorder, not otherwise specified; F43.21 Adjustment disorder with depressed mood; Z79.899 Other long term (current) drug therapy | CPT/HCPCS: 99212 ==

== ENCOUNTER 2024-06-18 14:25 | Outpatient (AMB) | payer MEDICARE, SELFPAY ==
[2024-06-18 14:26] VITALS: BP 180/80; PULSE 78; O2SAT 97; BMI 38.1
--- NOTE | 2024-06-18 14:26 | AM.OFFWIN_ITS ---
Intake Vital Signs 06/18/24 14:26 06/18/24 14:43 Height 5 ft 3 in Weight 215 lb BMI 38.1 BP 180/80 H 150/80 H Blood Pressure Location Lt brachial Lt brachial Position Sitting Sitting Pulse 78 Pulse Source Pulse Oximeter Pulse Oximetry (%) 97 Intake Visit Reasons: EP BP Intake Note: pt is here, had a nurse visit with high bp. nurse sent him to walk in Patient Tobacco Use Status: Never used Tobacco Allergies No Known Allergies Allergy (Verified 06/18/24 14:29) Do you need a note to return to daycare/school/sports/work: No HPI HPI Comments History of Present Illness0 Details 69 y/o male patient who presents to the walk in clinic with c/o elevated BP. H/o HTN and currently on Lisino/HCTZ, reports taking it everyday as prescribed. Lately has noticed his BP readings at home have been high and wondering if medications are working. Pt lost his recently and he is currently grieving and he is not sleeping well. He also works third shift (11p- 7a). Today denies any headaches, dizziness, blurry vision. [facility] Medical History (Updated 06/18/24 @ 14:58 by Helen Delgado NP) Grief Insomnia History of prostate cancer Shoulder pain, bilateral Intolerance to BiPAP/CPAP BLAIR (obstructive sleep apnea) Left rotator cuff tear Degenerative disc disease, cervical BROOKE (nonalcoholic steatohepatitis) Dyslipidemia Essential hypertension Surgical History History of spinal surgery Family History Father Medical history non-contributory Mother Medical history non-contributory Social History Housing: Apartment Alcohol intake: never Patient Tobacco Use Status: Never used Tobacco e-Cigarette/Vaping Use: Never Used Second Hand Smoke Exposure: No Advance Directives Date on File: 11/05/21 service: No Current occupational status: employed Cognitive needs: No Hearing needs: No Vision needs: Yes Review of Systems Const All systems reviewed & are unremarkable except as noted in HPI and below Physical Exam Vital Signs: Last Vital Signs Pulse 78 06/18/24 14:26 BP 150/80 H 06/18/24 14:43 Pulse Ox 97 06/18/24 14:26 BMI result Body Mass Index 38.1 Const General: cooperative and no acute distress Nutritional Appearance: overweight Orientation/consciousness: patient oriented x3 Resp Effort & Inspection: normal respiratory effort Auscultation: clear to auscultation bilaterally Cardio Heart sounds: S1 normal heart sound present and S2 normal heart sound present Neuro General: patient oriented x3, gait normal and moves all extremities Psych Speech and movement: Normal speech and movement present Assessment & Plan Assessment & Plan (1) Essential hypertension: Code(s): I10 - Essential (primary) hypertension Plan: Advised to continue on same dose for the next 2 weeks. Continue monitoring BP at home and keep Log (AM and PM). F/U with nurse Navigator in 2 weeks for BP check. Avoid processed food high in salt. (2) Insomnia: Code(s): G47.00 - Insomnia, unspecified Qualifiers: Insomnia type: due to other mental disorder Qualified Code(s): F51.05 - Insomnia due to other mental disorder; F99 - Mental disorder, not otherwise specified Plan: Ordered Trazodone 50 mg PRN for sleep. Goal is to help improve his sleep and cope with Grief, hence control BP readings. (3) Grief: Code(s): F43.21 - Adjustment disorder with depressed mood Plan: Ordered Trazodone. Advised Counseling Medications: New trazodone 50 mg PO BEDTIME 30 tabs 1RF F43.21 - Adjustment disorder with depressed mood, F51.05 - Insomnia due to other mental disorder, F99 - Mental disorder, not otherwise specified Coding Level of Care Code Est Pt Level 4 (10028) Diagnoses Essential hypertension I10 Insomnia due to other mental disorder F51.05; F99 Insomnia type: due to other mental disorder Grief F43.21 Time Spent (min) 20
[2024-06-18 14:43] VITALS: BP 150/80
== END 2024-06-18 15:17 | disposition home or self-care (01) ==
PROVIDERS: PCP Internal Medicine; Visit Provider Nurse Practitioner Family
DX: I10 Essential (primary) hypertension (principal); F51.05 Insomnia due to other mental disorder; F99 Mental disorder, not otherwise specified; F43.21 Adjustment disorder with depressed mood

== ENCOUNTER → 2024-06-22 15:31 | Outpatient (BNVA) | payer MEDICARE, SELFPAY | PROVIDERS: PCP Internal Medicine ==

== ENCOUNTER 2024-08-26 08:06 | Outpatient (AMB) | payer MEDICARE, SELFPAY ==
--- NOTE | 2024-08-26 08:16 | A.OFFPC_ITS ---
Vital Signs 08/26/24 08:17 Height 5 ft 3 in Weight 216 lb BMI 38.3 BP 160/80 H Blood Pressure Location Lt brachial Position Sitting Respiration 18 Pulse 52 Temp 97.5 F Temp Source Oral Pulse Oximetry (%) 97 Oxygen Delivery Method Room Air Intake Visit Reasons: High BP Intake Note: Pt is here today for his HTN f/u Allergies No Known Allergies Allergy (Verified 08/26/24 09:02) Medication List - Last Reconciled 08/26/24 by Kinga Mukherjee MD lisinopril-hydrochlorothiazide 20-12.5 mg 1 tab PO DAILY trazodone 50 mg PO BEDTIME PRN Tobacco use date assessed: 08/26/24 Fall risk assessment: No Falls in past year Last assessed Fall Risk: 08/26/24 Dental Screening Dental Screen Date: 08/26/24 Did you have a dental visit in the last 12 months?: No Did you have a dental problem in the last 6 months where you did not have access to dental care?: No Was dental information given to patient?: Patient has dentist HPI High BP HPI Details - The patient is a 69-year-old male pres enting with management of Essential Hypertension. - Fluctuating blood pressure readings chavez ve been noted since June, with Maximum systolic blood pressure going up to 160 mm Hg - The patient denies classical hypertens deejay symptoms such as chest pain, headache, chest pressure throat tightness, lightheadedness, shortness of breath, denies palpitation. - Recent stress from personal loss has d iminished, reducing the need for taking trazodone at bedtime, has only 2 doses of his trazodone Rx since being prescribed in in June. - routine labs done 06/23/2024 showed mi ld elevations in liver enzymes, lipids and fasting blood sugar levels were within normal - he has been compliant with a low-salt diet - Prostatectomy in the past has addresse d previous urinary difficulties, no significant active issues reported now currently being seen by Dr. Chepe Solano [facility] Medical History (Updated 08/26/24 @ 09:23 by Kinga Mukherjee MD) Colonoscopy refused History of prostate cancer Intolerance to BiPAP/CPAP BLAIR (obstructive sleep apnea) Left rotator cuff tear Degenerative disc disease, cervical BROOKE (nonalcoholic steatohepatitis) Dyslipidemia Essential hypertension Surgical History History of spinal surgery Family History Father Medical history non-contributory Mother Medical history non-contributory Social History Housing: Apartment Alcohol intake: never Patient Tobacco Use Status: Never used Tobacco e-Cigarette/Vaping Use: Never Used Second Hand Smoke Exposure: No Advance Directives Date on File: 11/05/21 service: No Current occupational status: employed Cognitive needs: No Hearing needs: No Vision needs: Yes Questionnaire PHQ-9 Over the last 2 weeks, how often have you been bothered by any of the following problems? 1. Little interest or pleasure in doing things: not at all 2. Feeling down, depressed, or hopeless: not at all 3. Trouble falling or staying asleep, or sleeping too much: not at all 4. Feeling tired or having little energy: not at all 5. Poor appetite or overeating: not at all 6. Feeling bad about yourself - or that you are a failure or have let yourself or your family down: not at all 7. Trouble concentrating on things, such as reading the newspaper or watching television: not at all 8. Moving or speaking so slowly that other people could have noticed. Or the opposite - being so fidgety or restless that you have been moving around a lot more than usual: not at all 9. Thoughts that you would be better off or of hurting yourself in some way: not at all Total score: 0 Depression Screening Interpretation: Negative Depression Screening Done: Yes 58606 - PHQ-9 Billing: Yes Source: Developed by Drs. Josh Westfall, Adry Almonte, Koby Jones and colleagues, with an educational frederick from [employer]. Thrive Questionnaire Date Thrive assessed: 08/23/24 I am a: Patient What is your living situation today?: I have a steady place to live Within the past 12 months, did the food you bought not last and you didn't have the money to get more?: Never true Within the past 12 months, did you worry whether your food would run out before you got money to buy more?: Never true Do you have trouble paying for medicines?: No Do you have trouble getting transportation to medical appointments?: No Do you have trouble paying your heating and electricity bill?: No Do you have trouble taking care of your child, family member or friend?: No Do you have trouble with day-to-day activities such as bathing, preparing meals, shopping, managing finances, etc.?: No Are you currently unemployed and looking for a job?: No Are you interested in more education?: No Please select the resources that you would like help with: None Currently or been in a relationship where the following occur: No concerns reported THRIVE Score: 0 AUDIT C Alcohol Use Questionnaire (AUDIT-C) 1. How often do you have a drink containing alcohol?: Never 3. How often do you have six or more drinks on one occasion?: Never Total Score: 0 QUINTEN-7 AMB Questionnaire QUINTEN-7 Date QUINTEN - 7 assessed: 08/26/24 Feeling nervous, anxious, or on edge: 0 = Not at all Not being able to stop or control worryin = Not at all Worrying too much about different things: 0 = Not at all Trouble relaxin = Not at all Being so restless that it is hard to sit still: 0 = Not at all Becoming easily annoyed or irritable: 0 = Not at all Feeling afraid as if something awful might happen: 0 = Not at all Total QUINTEN-7 score (0-4 normal; 5-9 mild; 10-14 moderate; 15-21 severe): 0 Source: Developed by Drs. Josh Westfall, Adry Almonte, Koby Jones and colleagues, with an educational frederick from [employer]. QUINTEN-7 Assessment Billing QUINTEN-7 Assessment Tool: QUINTEN-7 Assessment 58611 Review of Systems Const Denies fatigue, Denies fever(s), Denies headache(s) and Denies weakness ENT Denies dizziness, Denies headache(s), Denies nasal congestion, Denies nasal discharge and Denies sore throat Card Denies chest pain, Denies lightheadedness, Denies palpitations and Denies dyspnea Resp Denies dyspnea GI Denies abdominal pain, Denies change in bowel habits and Denies heartburn Denies hematuria, Denies difficulty urinating and Denies dysuria Skin/Breast Denies lesions and Denies rash Neuro Denies dizziness, Denies headache(s) and Denies weakness Endo Denies fatigue, Denies polydipsia, Denies polyuria and Denies palpitations Physical exam (Primary Care) Vital Signs: Last Vital Signs Temp 97.5 F 08/26/24 08:17 Pulse 52 08/26/24 08:17 Resp 18 08/26/24 08:17 BP 160/80 H 08/26/24 08:17 Pulse Ox 97 08/26/24 08:17 Oxygen Delivery Method Room Air 08/26/24 08:17 BMI result Body Mass Index 38.3 Tobacco/Smoking Status: Tobacco use Status Tobacco use date assessed 08/26/24 08/26/24 08:21 Patient Tobacco Use Status Never used Tobacco 08/26/24 08:21 e-Cigarette/Vaping Use Never Used 08/26/24 08:21 PHQ-9: PHQ-9 Score PHQ-9: Total score 0 08/26/24 09:10 Depression Screening Interpretation: Negative Thrive Assessment: Date of Thrive Assessment Date Thrive assessed 08/23/24 08/26/24 08:21 Currently or been in a relationship where the following occur: No concerns reported Const Other: Alert oriented x3, no acute distress noted Orientation/consciousness: patient oriented x3 HENMT Ears: external ears normal General nose exam: Normal external nose present Face and sinus: Yes face symmetric Mouth: Normal oral and palatal mucosa present and moist mucous membranes Neck Neck: Yes full ROM, Yes no lymphadenopathy and Yes supple Resp Auscultation: clear to auscultation bilaterally Cardio Other: S1-S2 present regular rate and rhythm GI Palpation (GI): Soft to palpation, nontender and no guarding Auscultation: normal bowel sounds Neuro General: patient oriented x3, moves all extremities, no focal motor deficits and CN's II-XI intact bilaterally Extrem General: Yes full ROM, Yes no joint enlargement, Yes no clubbing, cyanosis or edema, Yes no calf tenderness and Yes normal gait Coding Level of Care Code Est Pt Level 3 (78758) Diagnoses Essential hypertension I10 Additional Codes QUINTEN-7 Assessment Billing - QUINTEN-7 Assessment Tool: QUINTEN-7 Assessment 39974 ([id number]) PHQ-9 - 30968 - PHQ-9 Billing: Yes ([id number]) Assessment & Plan Assessment & Plan (1) Essential hypertension: Code(s): I10 - Essential (primary) hypertension Category: Medical Plan: The current treatment strategy for the patient?s essential hypertension emphasizes consistent blood pressure monitoring and medication adjustments. The initiation of Amlodipine and the adjustment in Lisinopril timing aim to achieve better control. Dietary modifications advised include further reduction in salt intake to manage hypertension and monitoring sugar intake for hyperglycemia. Pending results from follow-up evaluations and blood pressure recordings, additional interventions, possibly involving nephrology referral, may be necessary. - Take Lisinopril before going to work. - Take Amlodipine 5 mg with supper. - Monitor blood pressure at home and maintain a log. - Follow a low-salt diet and manage sugar intake. - Schedule a follow-up visit in two weeks to a month for blood pressure check. - Return for evaluation sooner if blood pressure remains high or if any concerning symptoms develop. Patient was informed and verbally consented to the use of an ambient scribe for clinic note documentation during this visit. Medications: New amlodipine 5 mg PO DAILY 30 tabs 2RF
[2024-08-26 08:17] VITALS: BP 160/80; PULSE 52; RESP 18; TEMP 36.4; O2SAT 97; BMI 38.3
== END 2024-08-26 09:52 | disposition home or self-care (01) ==
PROVIDERS: PCP Internal Medicine; Visit Provider Internal Medicine
DX: I10 Essential (primary) hypertension (principal)

== ENCOUNTER → 2024-08-26 08:06 | Outpatient (BNVA) | payer MEDICARE, SELFPAY | PROVIDERS: PCP Internal Medicine; Visit Provider Internal Medicine | DX: I10 Essential (primary) hypertension (principal) | CPT/HCPCS: 96127; 99212 ==

== ENCOUNTER → 2024-09-09 07:52 | Outpatient (BNVA) | payer MEDICARE, SELFPAY | PROVIDERS: PCP Internal Medicine ==

== ENCOUNTER → 2024-09-23 08:15 | Outpatient (BNVA) | payer MEDICARE, SELFPAY | PROVIDERS: PCP Internal Medicine ==

== ENCOUNTER 2024-12-14 08:15 | Outpatient (AMB) | payer MEDICARE, SELFPAY ==
--- NOTE | 2024-12-14 08:54 | AM.OFFWIN_ITS ---
Intake Vital Signs 12/14/24 08:55 Height 5 ft 3 in Weight 216 lb BMI 38.3 BP 130/70 Blood Pressure Location Lt brachial Position Sitting Pulse 58 Pulse Source Pulse Oximeter Temp 98.5 F Temp Source Oral Pulse Oximetry (%) 98 Oxygen Delivery Method Room Air Intake Visit Reasons: EP Pain/swelling in rt hand/joint Patient Tobacco Use Status: Never used Tobacco Allergies No Known Allergies Allergy (Verified 12/14/24 08:58) Do you need a note to return to daycare/school/sports/work: No HPI HPI Comments History of Present Illness Details History of Present Illness - The patient is a 69-year-old male pres enting with swelling and pain in the right hand finger joint. - The symptoms began approximately one a nd a half months ago with noticeable swelling in one joint, which is painful, particularly during movement or palpation. - The patient does not have a past medic al history of gout, arthritis, or recent injuries and denies any recent fevers, rashes, tick bites or other joint involvement. - The use of Aleve has provided some tem porary relief. - The patient reports that the pain and swelling have increased to a level where it interferes with daily activities. Physical Exam General: Cooperative, healthy appearing, comfortable, no acute distress and well developed Orientation: Patient oriented x3 Limitations: Swelling and pain in the right hand joint, limiting full movement Head: Normal to inspection Ears: Hearing grossly normal bilaterally Nose: Normal External nose present Face and sinus: Normal facial exam Eyes: Appearance normal, both eyes and all related structures Neck: Normal visual inspection and Yes full ROM Respiratory: Normal respiratory effort and able to speak in complete sentences Skin: No rashes or lesions noted Neuro: Patient oriented x3 Extremities: edema noted in the right hand 2nd digit MCP, no erythema, warmth or skin changes noted, NVI, full ROM [facility] Medical History (Updated 12/14/24 @ 09:23 by Silvia Nye PA-C) Impaired fasting glucose Colonoscopy refused History of prostate cancer Intolerance to BiPAP/CPAP BLAIR (obstructive sleep apnea) Left rotator cuff tear Degenerative disc disease, cervical BROOKE (nonalcoholic steatohepatitis) Dyslipidemia Essential hypertension Surgical History History of spinal surgery Family History Father Medical history non-contributory Mother Medical history non-contributory Social History Housing: Apartment Alcohol intake: never Patient Tobacco Use Status: Never used Tobacco e-Cigarette/Vaping Use: Never Used Second Hand Smoke Exposure: No Advance Directives Date on File: 11/05/21 service: No Current occupational status: employed Cognitive needs: No Hearing needs: No Vision needs: Yes Review of Systems Const All systems reviewed & are unremarkable except as noted in HPI and below Physical Exam Vital Signs: Last Vital Signs Temp 98.5 F 12/14/24 08:55 Pulse 58 12/14/24 08:55 BP 130/70 12/14/24 08:55 Pulse Ox 98 12/14/24 08:55 Oxygen Delivery Method Room Air 12/14/24 08:55 BMI result Body Mass Index 38.3 Assessment & Plan Assessment & Plan (1) Finger joint swelling: Code(s): M25.449 - Effusion, unspecified hand Qualifiers: Laterality: right Qualified Code(s): M25.441 - Effusion, right hand Plan: Diagnostic testing is required to elucidate the cause of the patient's right hand swelling and pain. A Lyme titer will be run to exclude Lyme disease, although exposure risk is low. Additionally, an x-ray of the right hand is ordered to check for structural abnormalities. The patient is directed to continue taking Aleve for temporary pain relief. X-ray results are expected by midday, with lab results the following day. Subsequent management will be based on these findings. The patient will be informed of the results and further care planning through a follow-up call. Patient was informed and verbally consented to the use of an ambient scribe for clinic note documentation during this visit. Orders: Orders Lyme IgG/IgM w/reflex to WB Today M25.449 - Effusion, unspecified hand Uric Acid Today M25.449 - Effusion, unspecified hand XR hand RT min 3V Today M25.449 - Effusion, unspecified hand Coding Level of Care Code Est Pt Level 3 (12457) Diagnoses Swelling of finger joint of right hand M25.441 Laterality: right
[2024-12-14 08:55] VITALS: BP 130/70; PULSE 58; TEMP 36.9; O2SAT 98; BMI 38.3
== END 2024-12-14 09:56 | disposition home or self-care (01) ==
PROVIDERS: PCP Internal Medicine; Visit Provider Physician Assistant
DX: M25.441 Effusion, right hand (principal)

== ENCOUNTER 2024-12-14 08:15 | Outpatient (REF) | payer MEDICARE, SELFPAY ==
--- NOTE | ~2024-12-14 | XR_ITS ---
EXAMINATION: XR HAND 3 OR MORE VIEWS RIGHT HISTORY: M25.449 - Effusion, unspecified hand COMPARISON: There are no prior studies available for comparison. FINDINGS: Three views of the right hand are submitted. Osseous mineralization is normal. There is no fracture or dislocation. There is mild degenerative change of the MCP joint of the thumb. The remaining joint spaces are maintained. The soft tissues are unremarkable. XR/XR hand RT min 3V IMPRESSION: Mild degenerative change of the MCP joint of the thumb. Electronically signed by: Josh Guevara MD 12/14/2024 09:48 AM EDT
[2024-12-14 15:42] LABS: Uric Acid 7.5 mg/dL (3.4-7.0)
[2024-12-15 06:58] LABS: Lyme Blot 3.78 index
[2024-12-15 16:18] LABS: Lyme Abs Screen POSITIVE
[2024-12-15 22:18] LABS: 18 KD (IgG) Band NON-REACTIVE; 23 KD (IgG) Band REACTIVE; 23 KD (IgM) Band NON-REACTIVE; 28 KD (IgG) Band NON-REACTIVE; 30 KD (IgG) Band NON-REACTIVE; 39 KD (IgM) Band NON-REACTIVE; 39KD (IgG) Band NON-REACTIVE; 41 KD (IgM) Band REACTIVE; 41KD (IgG) Band NON-REACTIVE; 45 KD (IgG) Band NON-REACTIVE; 58 KD (IgG) Band NON-REACTIVE; 66 KD (IgG) Band NON-REACTIVE; 93 KD (IgG) Band NON-REACTIVE; Lyme IgG Blot Interp NEGATIVE (NEGATIVE); Lyme IgM Blot Interp NEGATIVE (NEGATIVE)
== END 2024-12-14 08:16 | disposition home or self-care (01) ==
LOC: HO.HMGCX 08:15
PROVIDERS: PCP Internal Medicine; Visit Provider Physician Assistant
DX: M25.441 Effusion, right hand (principal)
CPT/HCPCS: 36415; 73130; 84550; 86617; 86618; 99212

== ENCOUNTER → 2024-12-14 09:29 | Outpatient (BNV) | payer MEDICARE, SELFPAY | PROVIDERS: PCP Internal Medicine; Visit Provider Radiology Diagnostic Radiology | DX: M25.441 Effusion, right hand (principal) | CPT/HCPCS: 73130 ==

== ENCOUNTER 2025-02-08 06:04 | Outpatient (REF) | payer MEDICARE, SELFPAY ==
[2025-02-08 11:03] LABS: MANUAL DIFF FLAG NO
[2025-02-08 11:04] LABS: Hematocrit 42.0 % (42.0-52.0); Hemoglobin 14.7 g/dl (14.0-18.0); Imm Gran Abs Auto 0.03 X10*3/uL (0.00-0.03); Imm Gran Pct Auto 0.3 % (0.0-0.4); Lymphocytes Absolute Auto 1.9 X10*3/uL (1.2-4.9); Mean Corpuscular HGB Conc 35.0 g/dl (31.0-36.0); Mean Corpuscular Hemoglobin 29.4 pg (27.0-33.0); Mean Corpuscular Volume 84.0 fL (80.0-98.0); NRBC Abs Auto 0.000 X10*3/uL (0.0-0.012); NRBC Pct Auto 0.0 /100WBC (0.0-0.2); Platelet Count 275 X10*3/uL (160-400); Red Blood Count 5.00 X10*6/uL (4.60-5.80); White Blood Count 8.8 X10*3/uL (4.8-10.8)
[2025-02-08 11:42] LABS: Hemoglobin A1C 130.1797 umol/L; Total Hemoglobin (HGBA1C) 3830.8859 umol/L
[2025-02-08 11:47] LABS: Alanine Aminotransferase 55 U/L (0-40); Anion Gap 13 (12-20); Aspartate Amino Transferase 43 U/L (5-37); Blood Urea Nitrogen 20 mg/dL (9-16); Calcium 8.4 mg/dL (8.4-10.2); Carbon Dioxide 21 mmol/L (22-29); Chloride 110 mmol/L (96-108); Cholesterol 171 mg/dL (<200); Estimated Glomerular Filt Rate > 60; HDL Cholesterol 36 mg/dL (>40); Iron 116 mcg/dL (45-160); Percent Iron Saturation 41 % (15-50); Potassium 3.9 mmol/L (3.3-5.1); Sodium 140 mmol/L (135-145); Total Iron Binding Capacity 284 mcg/dL (228-428); Triglycerides 137 mg/dL (<150); Unsaturated Iron Binding 168 ug/dL
== END 2025-02-08 06:05 | disposition home or self-care (01) ==
LOC: HO.HMGCLDS 06:04
PROVIDERS: PCP Internal Medicine; Visit Provider Internal Medicine
DX: K75.81 Nonalcoholic steatohepatitis (NASH) (principal); E78.5 Hyperlipidemia, unspecified; I10 Essential (primary) hypertension; R73.01 Impaired fasting glucose
CPT/HCPCS: 36415; 80048; 80061; 83036; 83540; 84450; 84460; 85025

== ENCOUNTER 2025-02-17 12:50 | Outpatient (AMB) | payer MEDICARE, SELFPAY ==
[2025-02-17 13:00] VITALS: BP 128/68; PULSE 60; RESP 16; TEMP 36.7; O2SAT 96; BMI 37.4
--- NOTE | 2025-02-17 13:00 | A.OFFVIS_ITS ---
Intake Vital Signs 02/17/25 13:00 Height 5 ft 3 in Weight 211 lb BMI 37.4 BP 128/68 Blood Pressure Location Lt brachial Position Sitting Respiration 16 Pulse 60 Pulse Source Pulse Oximeter Temp 98.0 F Temp Source Oral Pulse Oximetry (%) 96 Oxygen Delivery Method Room Air Intake Visit Reasons: SWV G0439 Intake Note: Pt is here today for his SWV Allergies No Known Allergies Allergy (Verified 02/17/25 13:30) Medication List - Last Reconciled 02/21/25 by Kinga Mukherjee MD amlodipine 10 mg PO DAILY lisinopril-hydrochlorothiazide 20-12.5 mg 1 tab PO DAILY tadalafil 5 mg PO DAILY PRN trazodone 50 mg PO BEDTIME PRN HPI SWV G0439 HPI Details SWV ? 69 year old male presents for his subsequent annual wellness visit. He has hypertension currently stable and controlled on lisinopril- HCTZ.. He is currently being followed [facility], diagnosed with adenocarcinoma of the prostate status post robotic assisted prostatectomy 11/11/2023 with bilateral PLND, doing well post surgery He had normal fasting lipid done 02/08/2025 and screening for diabetes mellitus done the same day showed mild elevation fasting glucose at 103 mg/dL Last colonoscopy was done in 2006, does not want to do further testing at present time. He is up-to-date with his COVID vaccination, up-to-date with his pn eumococcal vaccination and Tdap, had his 1st dose of shingles vaccine due again for the 2nd dose in March 2025, gets yearly flu shot ? Medical / Social History Reviewed? Past Medical History ?Yes . ? [place] of Care / Care Team list updated ?Yes . ? Surgical/Hospitalization History ?Yes . ? Current Medications (including OTC and supplements) ?Yes . ? Family History ?Yes . ? Tobacco Control form ?Yes . ? AUDIT-C (Alcohol use) form ?Yes . ? Illicit drug use in Social History ?Yes . ? Current diagnosis of depression? ?No ? Appropriate PHQ2/PHQ9 completed ?Yes . ? Data entered by ?[employer] and reviewed by provider ? Fall Risk ? Fall History? Have you had any falls with injury in the past year? ?No . ? Have you had two or more falls in the past year? ?No . ? Fall Risk Assessment: ?No falls in the past year . ? HRA filled out by the patient, reviewed by Provider and scanned. ? SWV ? Balance? Romberg ?negative ? Tandem walk ?Yes . ? Walk and Turn ?Yes . ? Rise from sit to stand ?Yes . ?Vision? Corrective lens ?Yes, wears reading glasses ? Vision screen ? Up-to-date, goes to opthalmologist in [place] , wears reading glasses ?Hearing? Whisper test ?pass . ?Written Plan?Completed. See Patient Documents.? HPI Comments History of Present Illness Details Complaining of erectile dysfunction, infrequent morning erections. Follow-up on his hypertension currently on 10 mg amlodipine daily and lisinopril HCTZ 20-12.5 mg once a day in a.m. [facility] Medical History (Updated 02/17/25 @ 13:50 by Kinga Mukherjee MD) Erectile dysfunction after radical prostatectomy Osteoarthritis of finger of right hand Impaired fasting glucose Colonoscopy refused History of prostate cancer Intolerance to BiPAP/CPAP BLAIR (obstructive sleep apnea) Left rotator cuff tear Degenerative disc disease, cervical BROOKE (nonalcoholic steatohepatitis) Dyslipidemia Essential hypertension Surgical History History of spinal surgery Family History Father Medical history non-contributory Mother Medical history non-contributory Social History Housing: Apartment Alcohol intake: never Patient Tobacco Use Status: Never used Tobacco e-Cigarette/Vaping Use: Never Used Second Hand Smoke Exposure: No Advance Directives Date on File: 11/05/21 service: No Current occupational status: employed Cognitive needs: No Hearing needs: No Vision needs: Yes Questionnaire Medicare Wellness Checkup [age] What gender do you identify with?: male During the past 4 weeks, how much have you been bothered by emotional problems such as feeling anxious, depressed, irritable, sad or downhearted, and blue?: slightly During the past 4 weeks, has your physical & emotional health limited your social activities with family, friends, neighbors, or groups?: not at all During the past 4 weeks, how much bodily pain have you generally had?: no pain During the past 4 weeks, was someone available to help you if you needed & wan jim help?: yes, as much as I wanted During the past 4 weeks, what was the hardest physical activity you could do for at least 2 minutes?: moderate Can you get to places out of walking distance without help? (For eg., can you travel alone on buses, taxis or drive your car?): Yes Can you go shopping for groceries or clothes without someone's help?: Yes Can you prepare your own meals?: Yes Can you do your housework without help?: Yes Because of any health problems, do you need the help of another person with your personal care needs such as eating, bathing, dressing or getting around the house?: No Can you handle your own money without help?: Yes During the past 4 weeks, how would you rate your health in general?: good During the past 4 weeks how have things been going for you?: pretty well Are you having difficulties driving your car?: no Do you always fasten your seat belt when you are in a car?: yes, usually During past 4 weeks, have you been bothered by the following: never: Falling or dizzy when standing up, Trouble eating well?, Teeth or denture problems?, Problems using the telephone? and Tiredness or fatigue? and always: Sexual problems? Have you fallen 2 or more times in the past year?: No Are you afraid of falling?: No Are you a smoker?: no During the past 4 weeks, how many drinks of wine, beer, or other alcoholic beverages did you have?: no alcohol at all Do you exercise for about 20 minutes 3 or more times a week?: no, I usually do not exercise this much Have you been given information to help with the following?: no: Hazards in your house that might hurt you? and no: Keeping track of your medications? How often do you have trouble taking medicines the way you have been told to take them?: I always take medicine as prescribed How confident are you that you can control & manage most of your health problems?: very confident What is your race?: White Mini Mental State Exam (MMSE) Orientation What is the (year) (season) (date) (day) (month)?: year (2024), season (summer), date (02/17/25), day ( ) and month (february) Where are we (state) (county) (town or city) (hospital) (floor)?: state ([facility]), county ([place]), town or city ([place]) and hospital/clinic ([facility]) Score Score: 9 Activity of Daily Living Bathing - sponge bath, tub bath or shower: receives no assistance (gets in/out by self, if usual bathing means Dressing - getting clothes from closets & drawers, including inner/outer garments & fasteners.: gets clothes & gets completely dressed without help Toileting - going to the 'toilet room' for urine/bowel elimination & cleaning self/arranging clothes: goes to toilet room, cleans self, arranges clothes without help Transfer: moves in & out of bed and chair without help (may use support object) Continence: controls urination/bowel movements completely by self Feeding: feeds self without help Total Score: 0 Information obtained from: patient Using telephone: independent Traveling: independent Shopping: independent Preparing meals: independent Housework: independent Taking medicine: independent Managing money: independent PHQ-9 Over the last 2 weeks, how often have you been bothered by any of the following problems? 1. Little interest or pleasure in doing things: not at all 2. Feeling down, depressed, or hopeless: not at all 3. Trouble falling or staying asleep, or sleeping too much: not at all 4. Feeling tired or having little energy: not at all 5. Poor appetite or overeating: not at all 6. Feeling bad about yourself - or that you are a failure or have let yourself or your family down: not at all 7. Trouble concentrating on things, such as reading the newspaper or watching television: not at all 8. Moving or speaking so slowly that other people could have noticed. Or the opposite - being so fidgety or restless that you have been moving around a lot more than usual: not at all 9. Thoughts that you would be better off or of hurting yourself in some way: not at all Total score: 0 Depression Screening Interpretation: Negative Depression Screening Done: Yes 06529 - PHQ-9 Billing: Yes Source: Developed by Drs. Josh Westfall, Adry Almonte, Koby Jones and colleagues, with an educational frederick from [employer]. Review of Systems Const All systems reviewed & are unremarkable except as noted in HPI and below Physical Exam Vital Signs: Last Vital Signs Temp 98.0 F 02/17/25 13:00 Pulse 60 02/17/25 13:00 Resp 16 02/17/25 13:00 BP 128/68 02/17/25 13:00 Pulse Ox 96 02/17/25 13:00 Oxygen Delivery Method Room Air 02/17/25 13:00 BMI result Body Mass Index 37.4 Const Other: Alert oriented x3, no acute distress noted ambulatory normal gait Neck Neck: Yes full ROM, Yes no lymphadenopathy and Yes supple Resp Effort & Inspection: normal respiratory effort Auscultation: clear to auscultation bilaterally Cardio Heart sounds: S1 normal heart sound present and S2 normal heart sound present Neuro General: gait normal and moves all extremities Results Reviewed Results Reviewed: Name: Miky Malik Age/Sex: 69/M : 1955 Unit#: [id number] Attend Dr: Kinga Mukherjee MD Re02/08/25 Status: DEP REF Location: [facility] Disch: SPEC : [id number] EFRAIN: 02/08/25 STATUS: COMP REQ : [id number] RECD: 02/08/[address]: Kinga Mukherjee MD COMP: 02/08/25 ENTERED: 02/08/[address] [facility] [address]: ORDERED: CBC Auto Diff Test Result Flag Reference WBC 8.8 4.8-10.8 X10*3/uL RBC 5.00 4.60-5.80 X10*6/uL HGB 14.7 14.0-18.0 g/dl HCT 42.0 42.0-52.0 % MCV 84.0 80.0-98.0 fL MCH 29.4 27.0-33.0 pg MCHC 35.0 31.0-36.0 g/dl RDW 13.2 11.0-16.0 % PLT 275 # 160-400 X10*3/uL MPV 11.5 9.4-12.4 fL Neut Pct Auto 66.4 45-73 % ImGran Pct Auto 0.3 0.0-0.4 % Lymp Pct Auto 21.6 20-40 % [place] Pct Auto 8.3 2-11 % Eos Pct Auto 2.7 0-4 % Baso Pct Auto 0.7 0-2 % NRBC Pct Auto 0.0 0.0-0.2 /100WBC ANC Neut Abs # 5.8 2.0-8.3 x10*3/uL ImGran Abs Auto 0.03 0.00-0.03 X10*3/uL Lymph Abs Auto 1.9 1.2-4.9 X10*3/uL [place] Abs Auto 0.7 0.1-1.2 X10*3/uL Eos Abs Auto 0.2 0.0-0.4 X10*3/uL Baso Abs Auto 0.1 0.0-0.2 X10*3/uL NRBC Abs Auto 0.000 0.0-0.012 X10*3/uL Name: Miky Malik Age/Sex: 69/M : 1955 Unit#: [id number] Attend Dr: Kinga Mukherjee MD Re02/08/25 Status: DEP [facility] Disch: SPEC : [id number] EFRAIN: 02/08/25 STATUS: COMP REQ : [id number] RECD: 02/08/[address]: Kinga Mukherjee MD COMP: 02/08/25 ENTERED: 02/08/[address] [facility] [address]: ORDERED: Met Prof Fast, IRON PROF, AST, ALT, Lipid Panel Test Result Flag Reference Sodium 140 135-145 mmol/L Potassium 3.9 3.3-5.1 mmol/L CL 110 H 96-108 mmol/L CO2 21 L 22-29 mmol/L Gap 13 12-20 BUN 20 H 9-16 mg/dL Creat 1.09 0.5-1.4 mg/dL eGFR > 60 Chronic Kidney Disease: Estimated GFR < 60 mL/min/1.73m2 Severe Kidney Disease: Estimated GFR < 15 mL/min/1.73m2 FBS 103 H 60-99 mg/dL A fasting glucose from 100-125 mg/dl is considered impaired (pre-diabetes). CA 8.4 # 8.4-10.2 mg/dL Iron 116 45-160 mcg/dL TIBC 284 228-428 mcg/dL Saturation 41 15-50 % UIBC 168 ug/dL AST (GOT) 43 H 5-37 U/L ALT (GPT) 55 H 0-40 U/L Triglyceride 137 <150 mg/dL Desirable Triglyceride: less than 150 mg/dL Borderline High Triglyceride 150-199 mg/dL High Triglyceride: 200-499 mg/dL Very High Triglyceride: greater than or equal to 5OO mg/dL Cholesterol 171 <200 mg/dL Desirable Cholesterol: less than 200 mg/dL Borderline High Cholesterol: 200-239 mg/dL High Cholesterol: greater than 239 mg/dL LDL Calculated 108 H <100 mg/dL Desirable LDL: less than 100 mg/dL Near Optimal/Above Optimal LDL: 110-129 mg/dL Borderline High LDL: 130-159 mg/dL High LDL: 160-189 mg/dL Very High LDL: greater than or equal to 190 mg/dL HDL 36 L >40 mg/dL Desirable HDL: greater than 40 mg/dL Note: This HDL assay may give artificially low results in patients with liver disease. Assessment & Plan Assessment & Plan (1) Essential hypertension: Code(s): I10 - Essential (primary) hypertension Plan: Blood pressure at goal of less than 130/80. Continue with current medication. Reinforced importance of following a low sodium diet, getting regular exercise, and lowering stress levels. (2) Impaired fasting glucose: Code(s): R73.01 - Impaired fasting glucose Plan: Your previous fasting blood sugars were elevated above 100 mg/dL. Impaired glucose metabolism increases the risk for developing diabetes mellitus type 2, as well as heart attack and stroke later on. Lifestyle changes that promotes weight loss, healthy eating habits, and regular exercise are important, and can prevent the progression to diabetes (3) Dyslipidemia: Code(s): E78.5 - Hyperlipidemia, unspecified Plan: Fasting lipids are within normal (4) BROOKE (nonalcoholic steatohepatitis): Code(s): K75.81 - Nonalcoholic steatohepatitis (BROOKE) Plan: Mild elevation in liver enzymes noted, will continue to monitor (5) Colonoscopy refused: Comment: Had a negative Cologuard in 2022 Code(s): Z53.20 - Procedure and treatment not carried out because of patient's decision for unspecified reasons Plan: Patient declined any colon cancer screening (6) Erectile dysfunction after radical prostatectomy: Code(s): N52.31 - Erectile dysfunction following radical prostatectomy Plan: Will try on Cialis 5 mg once a day as needed (7) Encounter for subsequent annual wellness visit (AWV) in Medicare patient: Code(s): Z00.00 - Encounter for general adult medical examination without abnormal findings Plan: Medical wellness checklist reviewed, discussed with patient and updated. Copy given (8) Advance directive discussed with patient: Code(s): Z71.89 - Other specified counseling Plan: Initiated the conversation about Advanced Directives. Advanced Directives help patients prepare for current and future decisions about their medical treatment and place of care. Discussed with patient that it is a process where a patients current condition and prognosis are reviewed, their wishes for information regarding their illness are elicited, and likely medical dilemmas are presented and options discussed. Healthcare proxy and MOLST form completed today. The form can be amended as needed, reviewed yearly and make changes as needed Medications: New tadalafil administer approximately 30min before sexual activity; do not use more than 1 dose per 24hrs 5 mg PO DAILY PRN 30 tabs 0RF sexual activity Quality Reporting (2019) Depression/Bipolar (159/160/161/177) PHQ-9: Total score: 0 Coding Level of Care Code Medicare Subsequent (G0439) Est Pt Level 4 (57770) Diagnoses Essential hypertension I10 Impaired fasting glucose R73.01 Dyslipidemia E78.5 BROOKE (nonalcoholic steatohepatitis) K75.81 Colonoscopy refused Z53.20 Erectile dysfunction after radical prostatectomy N52.31 Encounter for subsequent annual wellness visit (AWV) in Medicare patient Z00.00 Advance directive discussed with patient Z71.89 CPT Codes Advance Care Planning - Advance Care Planning discussion: On file, no changes ([id number]) Additional Codes PHQ-9 - 66375 - PHQ-9 Billing: Yes ([id number]) Advance Care Planning Advance Care Planning discussion: On file, no changes Date of discussion: 02/17/25 Who was present: patient Forms completed: Health Care Proxy and MOLST Actual minutes spent: 2
== END 2025-02-17 13:49 | disposition home or self-care (01) ==
LOC: HO.HMCC 12:51
PROVIDERS: PCP Internal Medicine; Visit Provider Internal Medicine
DX: Z00.00 Encounter for general adult medical examination without abnormal findings (principal); I10 Essential (primary) hypertension; R73.01 Impaired fasting glucose; E78.5 Hyperlipidemia, unspecified; K75.81 Nonalcoholic steatohepatitis (NASH); Z53.20 Procedure and treatment not carried out because of patient's decision for unspecified reasons; N52.31 Erectile dysfunction following radical prostatectomy; Z71.89 Other specified counseling

== ENCOUNTER → 2025-02-17 12:50 | Outpatient (BNVA) | payer MEDICARE, SELFPAY | PROVIDERS: PCP Internal Medicine; Visit Provider Internal Medicine | DX: I10 Essential (primary) hypertension (principal); R73.01 Impaired fasting glucose; E78.5 Hyperlipidemia, unspecified; K75.81 Nonalcoholic steatohepatitis (NASH); N52.31 Erectile dysfunction following radical prostatectomy; Z71.89 Other specified counseling | CPT/HCPCS: 96127; 99212 ==

== ENCOUNTER 2025-05-02 12:29 | Outpatient (AMB) | payer MEDICARE, SELFPAY ==
[2025-05-02 12:38] VITALS: BP 140/64; PULSE 50; TEMP 36.7; O2SAT 96; BMI 37.0
--- NOTE | 2025-05-02 12:38 | AM.OFFWIN_ITS ---
Intake Vital Signs 05/02/25 12:38 Height 5 ft 3 in Weight 209 lb BMI 37.0 BP 140/64 H Blood Pressure Location Lt brachial Position Sitting Pulse 50 Pulse Source Pulse Oximeter Temp 98.0 F Temp Source Oral Pulse Oximetry (%) 96 Oxygen Delivery Method Room Air Intake Visit Reasons: EP-loosing weight Intake Note: pt presents with concern for weight loss as he's noticing clothes are much looser and has very dark almost black stools, lightheaded periodically- denies abdominal pain, Patient Tobacco Use Status: Never used Tobacco Allergies No Known Allergies Allergy (Verified 05/02/25 12:45) Do you need a note to return to daycare/school/sports/work: No HPI HPI Comments History of Present Illness Details 70 y/o Male patient who presents to the walk in clinic with c/o Unintentional weight loss. Reports that he has noticed his clothes do not fit him like they used to and appear to be Big in size. He had to purchase smaller size clothing. Denies any appetite changes - he does eat 2 meals a day. Denies any nausea or vomiting. Denies diarrhea or constipation. Denies any abdominal pain. Patient weighed 216 pounds back in 12/2024, then 211 pounds in February and Now today he weights 209 pounds. Reports that he is not trying to loose weight. Pt reports Dark Stools on/off for few weeks now, but denies rectal bleeding. Denies Hematuria. He does have h/o Prostate CA with Prostatectomy 2023. He is being managed by [facility]. His Last Colonoscopy was years ago - when he was in his 50s. Pt declined Colonoscopy when he came in for Physical Exam back in February with his PCP. Had a long discussion on the benefits of Colonoscopy screening for Colon CA. Pt is agreeable with Colonoscopy. Will Message PCP for GI referral. [facility] Medical History (Updated 05/02/25 @ 13:20 by Helen Delgado NP) Weight loss, unintentional Dark stools Erectile dysfunction after radical prostatectomy Osteoarthritis of finger of right hand Impaired fasting glucose Colonoscopy refused History of prostate cancer Intolerance to BiPAP/CPAP BLAIR (obstructive sleep apnea) Left rotator cuff tear Degenerative disc disease, cervical BROOKE (nonalcoholic steatohepatitis) Dyslipidemia Essential hypertension Surgical History History of spinal surgery Family History Father Medical history non-contributory Mother Medical history non-contributory Social History Housing: Apartment Alcohol intake: never Patient Tobacco Use Status: Never used Tobacco e-Cigarette/Vaping Use: Never Used Second Hand Smoke Exposure: No Advance Directives Date on File: 11/05/21 service: No Current occupational status: employed Cognitive needs: No Hearing needs: No Vision needs: Yes Review of Systems Const All systems reviewed & are unremarkable except as noted in HPI and below Physical Exam Vital Signs: Last Vital Signs Temp 98.0 F 05/02/25 12:38 Pulse 50 05/02/25 12:38 BP 140/64 H 05/02/25 12:38 Pulse Ox 96 05/02/25 12:38 Oxygen Delivery Method Room Air 05/02/25 12:38 BMI result Body Mass Index 37.0 Const General: no acute distress Nutritional Appearance: overweight Orientation/consciousness: patient oriented x3 Resp Effort & Inspection: normal respiratory effort Auscultation: clear to auscultation bilaterally Cardio Heart sounds: S1 normal heart sound present and S2 normal heart sound present GI Rectal Exam - Male: Yes deferred Neuro General: patient oriented x3, gait normal and moves all extremities Psych Speech and movement: Normal speech and movement present Assessment & Plan Assessment & Plan (1) Dark stools: Code(s): R19.5 - Other fecal abnormalities Plan: Advised to have Colonoscopy and Upper GI to find the source of his Dark Stools. Will need referral to GI from PCP (will message PCP). (2) Weight loss, unintentional: Code(s): R63.4 - Abnormal weight loss Plan: Pt did loose ~ 7 pounds in the last 3-4 months. There is definitely a gradual weight decrease since 12/2024. Advised Pt to weigh himself the same time everyday and use the same scale. [place] weigh with no clothes. Advised to have 3 healthy meals everyday. Coding Level of Care Code Est Pt Level 4 (99927) Diagnoses Dark stools R19.5 Weight loss, unintentional R63.4 Time Spent (min) 20
== END 2025-05-02 13:24 | disposition home or self-care (01) ==
PROVIDERS: PCP Internal Medicine; Visit Provider Nurse Practitioner Family
DX: R19.5 Other fecal abnormalities (principal); R63.4 Abnormal weight loss

== ENCOUNTER → 2025-05-02 12:29 | Outpatient (BNVA) | payer MEDICARE, SELFPAY | PROVIDERS: PCP Internal Medicine; Visit Provider Nurse Practitioner Family | DX: R19.5 Other fecal abnormalities (principal); R63.4 Abnormal weight loss | CPT/HCPCS: 99212 ==

== ENCOUNTER 2025-05-04 13:19 | Outpatient (AMB) | payer MEDICARE, SELFPAY ==
--- NOTE | 2025-05-04 13:23 | A.OFFPC_ITS ---
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 Allergies No Known Allergies Allergy (Verified 05/04/25 14:19) Medication List - Last Reconciled 05/04/25 by Kinga Mukherjee MD amlodipine 10 mg PO DAILY trazodone 50 mg PO BEDTIME PRN Tobacco use date assessed: 05/04/25 Fall risk assessment: No Falls in past year Last assessed Fall Risk: 05/04/25 Dental Screening Dental Screen Date: 05/04/25 Did you have a dental visit in the last 12 months?: No Did you have a dental problem in the last 6 months where you did not have access to dental care?: No Was dental information given to patient?: Patient has dentist HPI loosing weight HPI Details The patient is a 70-year-old male presenting with concerns about weight loss and dark stools. He reported visiting urgent care due to concerns about weight loss, although the weight change was minimal, from 209 to 208 pounds. The patient acknowledged eating slightly less than usual but maintained the same level of physical activity. The patient also reported experiencing dark stools intermittently every two to three months. He denied taking iron supplements and had a colonoscopy approximately 20 years ago, which showed no abnormalities. The patient has not had any recent blood work related to this issue, and his last lab results in February were normal. The patient has a history of hypertension, managed with amlodipine, and he is not currently experiencing any symptoms such as shortness of breath or chest pain. He also mentioned erectile dysfunction, for which he previously tried tadalafil without success, and is requesting to try sildenafil. REPLACED BY [facility] Medical History (Updated 05/04/25 @ 14:30 by Kinga Mukherjee MD) Erectile dysfunction Colon cancer screening Weight loss, unintentional Dark stools Erectile dysfunction after radical prostatectomy Osteoarthritis of finger of right hand Impaired fasting glucose Colonoscopy refused History of prostate cancer Intolerance to BiPAP/CPAP BLAIR (obstructive sleep apnea) Left rotator cuff tear Degenerative disc disease, cervical BROOKE (nonalcoholic steatohepatitis) Dyslipidemia Essential hypertension Surgical History History of spinal surgery Family History Father Medical history non-contributory Mother Medical history non-contributory Social History Housing: Apartment Alcohol intake: never Patient Tobacco Use Status: Never used Tobacco e-Cigarette/Vaping Use: Never Used Second Hand Smoke Exposure: No Advance Directives Date on File: 11/05/21 service: No Current occupational status: employed Cognitive needs: No Hearing needs: No Vision needs: Yes Questionnaire PHQ-9 Over the last 2 weeks, how often have you been bothered by any of the following problems? 1. Little interest or pleasure in doing things: not at all 2. Feeling down, depressed, or hopeless: not at all 3. Trouble falling or staying asleep, or sleeping too much: not at all 4. Feeling tired or having little energy: not at all 5. Poor appetite or overeating: not at all 6. Feeling bad about yourself - or that you are a failure or have let yourself or your family down: not at all 7. Trouble concentrating on things, such as reading the newspaper or watching television: not at all 8. Moving or speaking so slowly that other people could have noticed. Or the opposite - being so fidgety or restless that you have been moving around a lot more than usual: not at all 9. Thoughts that you would be better off or of hurting yourself in some way: not at all Total score: 0 Depression Screening Interpretation: Negative Depression Screening Done: Yes Source: Developed by Drs. Josh Westfall, Adry Almonte, Koby Jones and colleagues, with an educational frederick from [employer]. Thrive Questionnaire Date Thrive assessed: 08/23/24 I am a: Patient What is your living situation today?: I have a steady place to live Within the past 12 months, did the food you bought not last and you didn't have the money to get more?: Never true Within the past 12 months, did you worry whether your food would run out before you got money to buy more?: Never true Do you have trouble paying for medicines?: No Do you have trouble getting transportation to medical appointments?: No Do you have trouble paying your heating and electricity bill?: No Do you have trouble taking care of your child, family member or friend?: No Do you have trouble with day-to-day activities such as bathing, preparing meals, shopping, managing finances, etc.?: No Are you currently unemployed and looking for a job?: No Are you interested in more education?: No Please select the resources that you would like help with: None Currently or been in a relationship where the following occur: No concerns reported THRIVE Score: 0 AUDIT C Alcohol Use Questionnaire (AUDIT-C) 1. How often do you have a drink containing alcohol?: Never 3. How often do you have six or more drinks on one occasion?: Never Total Score: 0 QUINTEN-7 AMB Questionnaire QUINTEN-7 Date QUINTEN - 7 assessed: 08/26/24 Feeling nervous, anxious, or on edge: 0 = Not at all Not being able to stop or control worryin = Not at all Worrying too much about different things: 0 = Not at all Trouble relaxin = Not at all Being so restless that it is hard to sit still: 0 = Not at all Becoming easily annoyed or irritable: 0 = Not at all Feeling afraid as if something awful might happen: 0 = Not at all Total UQINTEN-7 score (0-4 normal; 5-9 mild; 10-14 moderate; 15-21 severe): 0 Source: Developed by Drs. Josh Westfall, Adry Almonte, Koby Jones and colleagues, with an educational frederick from [employer]. Review of Systems Const Denies fatigue, Denies fever(s), Denies headache(s) and Denies weakness ENT Denies dizziness and Denies headache(s) Card Denies chest pain, Denies lightheadedness, Denies palpitations and Denies dyspnea Resp Denies dyspnea GI Denies abdominal pain, Denies change in bowel habits and Denies heartburn Denies hematuria, Denies difficulty urinating and Denies dysuria Skin/Breast Denies lesions and Denies rash Neuro Denies dizziness, Denies headache(s) and Denies weakness Endo Denies fatigue, Denies polydipsia, Denies polyuria and Denies palpitations Physical exam (Primary Care) Vital Signs: Last Vital Signs Temp 97.9 F 05/04/25 14:07 Pulse 45 L 05/04/25 14:07 Resp 16 05/04/25 14:07 BP 134/60 05/04/25 14:07 Pulse Ox 98 05/04/25 14:07 Oxygen Delivery Method Room Air 05/04/25 14:07 BMI result Body Mass Index 36.8 Tobacco/Smoking Status: Tobacco use Status Tobacco use date assessed 05/04/25 05/04/25 13:26 Patient Tobacco Use Status Never used Tobacco 05/04/25 13:26 e-Cigarette/Vaping Use Never Used 05/04/25 13:26 PHQ-9: PHQ-9 Score PHQ-9: Total score 0 05/04/25 14:21 Depression Screening Interpretation: Negative Thrive Assessment: Date of Thrive Assessment Date Thrive assessed 08/23/24 05/04/25 13:26 Currently or been in a relationship where the following occur: No concerns reported Const Other: Alert oriented x3, no acute distress noted HENMT Ears: external ears normal General nose exam: Normal external nose present Face and sinus: Yes face symmetric Mouth: Normal oral and palatal mucosa present and moist mucous membranes Neck Neck: Yes full ROM, Yes no lymphadenopathy and Yes supple Resp Auscultation: clear to auscultation bilaterally Cardio Other: S1-S2 present regular rate and rhythm GI Palpation (GI): Soft to palpation, nontender and no guarding Auscultation: normal bowel sounds Male General Exam: Yes normal external exam Skin General skin exam: no rashes or lesions noted Neuro General: moves all extremities, no focal motor deficits and CN's II-XI intact bilaterally Extrem General: Yes full ROM, Yes no joint enlargement, Yes no clubbing, cyanosis or edema, Yes no calf tenderness and Yes normal gait Coding Level of Care Code Est Pt Level 4 (64057) Diagnoses Dark stools R19.5 Colon cancer screening Z12.11 Erectile dysfunction N52.9 Assessment & Plan Assessment & Plan (1) Dark stools: Code(s): R19.5 - Other fecal abnormalities Category: Medical Plan: Referred to GI for further evaluation management, last complete blood count February 2025 showed normal hemoglobin hematocrit, white blood cell count and platelet count (2) Colon cancer screening: Code(s): Z12.11 - Encounter for screening for malignant neoplasm of colon Category: Medical Plan: Referred to GI for further evaluation and colon cancer screening (3) Erectile dysfunction: Code(s): N52.9 - Male erectile dysfunction, unspecified Category: Medical Plan: Discontinue tadalafil, prescription sent for sildenafil mg per tablet to take 1 tablet once a day at least an hour prior to onset of sexual activity. Discussed possible side effects of medication which may include chest pain, headache Orders: Referrals Gastroenterology Referral R19.5 - Other fecal abnormalities, Z12.11 - En counter for screening for malignant neoplasm of colon Medications: New sildenafil (Viagra) administer 30 minutes to 4 hours before activity 100 mg PO DAILY PRN 10 tabs 1RF sexual activity
[2025-05-04 14:07] VITALS: BP 134/60; PULSE 45; RESP 16; TEMP 36.6; O2SAT 98; BMI 36.8
== END 2025-05-04 14:31 | disposition home or self-care (01) ==
LOC: HO.HMCC 13:20
PROVIDERS: PCP Internal Medicine; Visit Provider Internal Medicine
DX: R19.5 Other fecal abnormalities (principal); Z12.11 Encounter for screening for malignant neoplasm of colon; N52.9 Male erectile dysfunction, unspecified

== ENCOUNTER → 2025-05-04 13:19 | Outpatient (BNVA) | payer MEDICARE, SELFPAY | PROVIDERS: PCP Internal Medicine; Visit Provider Internal Medicine | DX: I10 Essential (primary) hypertension (principal); R19.5 Other fecal abnormalities; N52.9 Male erectile dysfunction, unspecified | CPT/HCPCS: 96127; 99212 ==

== ENCOUNTER 2025-07-02 06:58 | Outpatient (REF) | payer MEDICARE, SELFPAY ==
[2025-07-02 11:15] LABS: MANUAL DIFF FLAG NO
[2025-07-02 11:20] LABS: Hematocrit 45.8 % (42.0-52.0); Hemoglobin 15.6 g/dl (14.0-18.0); Imm Gran Abs Auto 0.03 X10*3/uL (0.00-0.03); Imm Gran Pct Auto 0.3 % (0.0-0.4); Lymphocytes Absolute Auto 2.4 X10*3/uL (1.2-4.9); Mean Corpuscular HGB Conc 34.1 g/dl (31.0-36.0); Mean Corpuscular Hemoglobin 28.2 pg (27.0-33.0); Mean Corpuscular Volume 82.8 fL (80.0-98.0); NRBC Abs Auto 0.000 X10*3/uL (0.0-0.012); NRBC Pct Auto 0.0 /100WBC (0.0-0.2); Platelet Count 264 X10*3/uL (160-400); Red Blood Count 5.53 X10*6/uL (4.60-5.80); White Blood Count 9.5 X10*3/uL (4.8-10.8)
== END 2025-07-02 06:59 | disposition home or self-care (01) ==
LOC: HO.HMGCLNP 06:58
PROVIDERS: PCP Internal Medicine; Visit Provider Internal Medicine
DX: R19.5 Other fecal abnormalities (principal)
CPT/HCPCS: 85025

== ENCOUNTER 2025-08-03 10:27 | Outpatient (AMB) | payer MEDICARE, SELFPAY ==
[2025-08-03 10:41] VITALS: BP 130/60; PULSE 62; TEMP 36.5; O2SAT 98; BMI 37.2
--- NOTE | 2025-08-03 10:41 | MHC.OFFWIV ---
Intake Vital Signs 08/03/25 10:41 Height 5 ft 3 in Weight 210 lb BMI 37.2 BP 130/60 Blood Pressure Location Rt brachial Position Sitting Pulse 62 Pulse Source Pulse Oximeter Temp 97.7 F Temp Source Oral Pulse Oximetry (%) 98 Oxygen Delivery Method Room Air Intake Visit Reasons: EP Rash on left arm Intake Note: pt presents with an itchy and enlarging ring-like rash on LT forearm for about a week Patient Tobacco Use Status: Never used Tobacco Allergies No Known Allergies Allergy (Verified 08/03/25 10:41) Medication List - Last Reconciled 08/03/25 by Senia Xiong MD amlodipine 10 mg PO DAILY clotrimazole-betamethasone 1-0.05 % 1 appl topical TID 30 days sildenafil (Viagra) 100 mg PO DAILY PRN trazodone 50 mg PO BEDTIME PRN Do you need a note to return to daycare/school/sports/work: No HPI EP Rash on left arm HPI Details History of Present Illness The patient is a 70 year old male presenting with a skin rash on his left forearm. Fungal Skin Infection: - The patient reports the onset of a rash on his left forearm approximately one week ago. - The rash was initially smaller and has been spreading. - He describes the rash as itchy but denies any associated pain. - He has no history of a similar rash, known insect bites, or tick bites. Social History: - The patient denies spending time outdoors recently. Problem List - Fungal skin infection Plan - The patient was diagnosed with a suspected fungal skin infection based on the characteristic appearance of the rash, which is round with a scaly edge and pruritic. - Prescribed Lotrisone cream to be applied three times a day for at least three weeks. - The patient was advised to return for a follow-up appointment in three weeks to reassess the condition. 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 No pain with palpation, pruritic. [facility] Medical History Erectile dysfunction Colon cancer screening Weight loss, unintentional Dark stools Erectile dysfunction after radical prostatectomy Osteoarthritis of finger of right hand Impaired fasting glucose Colonoscopy refused History of prostate cancer Intolerance to BiPAP/CPAP BLAIR (obstructive sleep apnea) Left rotator cuff tear Degenerative disc disease, cervical BROOKE (nonalcoholic steatohepatitis) Dyslipidemia Essential hypertension Surgical History History of spinal surgery Family History Father Medical history non-contributory Mother Medical history non-contributory Social History Housing: Apartment Alcohol intake: never Patient Tobacco Use Status: Never used Tobacco e-Cigarette/Vaping Use: Never Used Second Hand Smoke Exposure: No Advance Directives Date on File: 11/05/21 service: No Current occupational status: employed Cognitive needs: No Hearing needs: No Vision needs: Yes Physical Exam Vital Signs: Last Vital Signs Temp 97.7 F 08/03/25 10:41 Pulse 62 08/03/25 10:41 BP 130/60 08/03/25 10:41 Pulse Ox 98 08/03/25 10:41 Oxygen Delivery Method Room Air 08/03/25 10:41 BMI result Body Mass Index 37.2 Assessment & Plan Assessment & Plan (1) Fungal skin infection: Code(s): B36.9 - Superficial mycosis, unspecified Plan Plan - The patient was diagnosed with a suspected fungal skin infection based on the characteristic appearance of the rash, which is round with a scaly edge and pruritic. - Prescribed Lotrisone cream to be applied three times a day for at least three weeks. - The patient was advised to return for a follow-up appointment in three weeks to reassess the condition. Medications: New clotrimazole-betamethasone 1-0.05 % 1 appl topical TID 45 grams 0RF 30 days Coding Level of Care Code Est Pt Level 3 (79478) Diagnoses Fungal skin infection B36.9
== END 2025-08-03 10:59 | disposition home or self-care (01) ==
PROVIDERS: PCP Internal Medicine; Visit Provider Internal Medicine
DX: B36.9 Superficial mycosis, unspecified (principal)

== ENCOUNTER → 2025-08-03 10:27 | Outpatient (BNVA) | payer MEDICARE, SELFPAY | PROVIDERS: PCP Internal Medicine | DX: B36.9 Superficial mycosis, unspecified (principal) | CPT/HCPCS: 99212 ==